=== PATIENT | male | born 1975 | race Caucasian/White ===

== ENCOUNTER → 2017-08-07 17:09 | Outpatient (CLI) | payer MEDICARE, MEDICAID, SELFPAY ==
--- NOTE | 2017-08-07 17:28 | RAD_ITS ---
STUDY: X-RAY - RIGHT ANKLE REASON FOR EXAM: Male, 42 years old. Agitate, redness and swelling, possible occult fracture, patient non-verbal, two views obtained, patient unable to cooperate very well TECHNIQUE: 2 view(s) of the ankle. COMPARISON: None. FINDINGS: Normal visualized distal tibia and fibula. Normal medial and lateral malleoli. Normal tibiotalar articulation and ankle mortise. Normal visualized talus and calcaneus. The visualized subtalar, talonavicular, calcaneocuboid and tarsal articulations are normal. There is soft tissue swelling of the ankle and distal leg RAD/Ankle 2 Views IMPRESSION: Soft tissue swelling of the ankle and distal leg Electronically Signed: Babatunde Aviles MD, FACR at 8:41 EST , Service support ,
--- NOTE | 2017-08-07 17:28 | RAD_ITS ---
STUDY: X-RAY - LEFT FOOT CLINICAL: Male, 42 years old. Agitate, redness and swelling, possible occult fracture, patient non-verbal, two views obtained, patient unable to cooperate very well TECHNIQUE: 2 view(s) of the foot. COMPARISON: None. FINDINGS: Normal talus, calcaneus, and tarsal bones. Normal visualized subtalar, talonavicular, calcaneocuboid, tarsal and tarsometatarsal articulations. Normal metatarsi. Normal metatarsophalangeal joint of the great toe. There is soft tissue swelling adjacent to the head of the first metatarsal with small calcific deposits Normal tibial and fibular sesamoid bones. Normal interphalangeal joint of the great toe. Normal phalanges of the great toe. Normal second through fifth metatarsophalangeal joints. Normal interphalangeal joints and phalanges of the lesser toes. There is soft tissue swelling of the ankle and dorsum of the foot RAD/Foot 2 Views IMPRESSION: Focal soft tissue swelling adjacent to the head of the first metatarsal with a small soft tissue deposits. Rule out gout. Soft tissue swelling of the ankle and dorsum of the foot. Electronically Signed: Babatunde Aviles MD, FACR at 8:29 EST , Service support ,
--- NOTE | 2017-08-07 17:28 | RAD_ITS ---
STUDY: X-RAY - LEFT ANKLE REASON FOR EXAM: Male, 42 years old. Agitate, redness and swelling, possible occult fracture, patient non-verbal, two views obtained, patient unable to cooperate or hold still TECHNIQUE: 2 view(s) of the ankle. COMPARISON: None. FINDINGS: Normal visualized distal tibia and fibula. Normal medial and lateral malleoli. Normal tibiotalar articulation and ankle mortise. Normal visualized talus and calcaneus. The visualized subtalar, talonavicular, calcaneocuboid and tarsal articulations are normal. There is soft tissue swelling of the distal leg and ankle RAD/Ankle 2 Views IMPRESSION: Soft tissue swelling of the distal leg and ankle. No bony lesions noted Electronically Signed: Babatunde Aviles MD, FACR at 8:27 EST , Service support ,
--- NOTE | 2017-08-07 17:28 | RAD_ITS ---
STUDY: X-RAY - RIGHT FOOT CLINICAL: Male, 42 years old. Right foot pain TECHNIQUE: 2 view(s) of the foot. COMPARISON: None. FINDINGS: Normal talus, calcaneus, and tarsal bones. Pes planus deformity. Mild nonuniform joint space narrowing of the tibiotalar joint. The midfoot articulations are unremarkable. Exostosis of the mid diaphysis of the first metatarsal. No acute of metatarsal fracture. Mild to moderate nonuniform joint space narrowing with spur formation involving the first metatarsophalangeal joint with mild metatarsus varus hallux valgus deformity. Small ossific density off of the medial base of the proximal phalanx of the great toe which may represent a chronic avulsion fracture. Normal tibial and fibular sesamoid bones. Mild degenerative change of the interphalangeal joint of the great toe. Normal phalanges of the great toe. Normal second through fifth metatarsophalangeal joints. Normal interphalangeal joints and phalanges of the lesser toes. Mild dorsal soft tissue swelling of the forefoot. RAD/Foot 2 Views IMPRESSION: 1. No evidence of acute fracture or dislocation to the right foot. 2. 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 Electronically Signed: Neil Vidales MD at 3:49 EST Tel , Service support ,
[2017-08-07 17:56] LABS: Absolute Lymphocyte Count 2.01 X10^3/ul (0.83-4.51); Absolute Neutrophil Count 5.8 X10^3/uL (2.0-7.7); Basophil# 0.04 X10^3/uL; Basophil% 0.4 % (0-1); Eosinophil# 0.07 X10^3/uL; Eosinophils% 0.8 % (0-5); Hematocrit 43.3 % (40-54); Hemoglobin 14.8 g/dl (13.0-16.5); Lymphocyte # 2.01 X10^3/ul (4.0); Lymphocyte % 22.4 % (19-41); Mean Corp Hgb Conc 34.2 g/gl (32-36); Mean Corpuscular Hgb 30.7 pg (27.0-32.0); Mean Corpuscular Volume 89.8 fL (80-94); Mean Platelet Vol. 11.5 fl (6.2-12.0); Monocyte# 1.06 X10^3/uL; Monocyte% 11.8 % (0-10); Neutrophil # 5.75 X10^3/uL (2.7-7.7); POSITIVE COUNT NO; POSITIVE DIFFERENTIAL NO; POSITIVE MORPHOLOGY NO; Platelet Count 190 K/mm3 (150-450); RBC Distribution Width SD 45.5 fl (35.1-43.9); Red Blood Count 4.82 M/mm3 (4.6-6.2)
[2017-08-07 18:10] LABS: Erythrocyte Sedimentation Rate 4 mm/hr (0-15)
[2017-08-07 19:08] LABS: BNP,B-Type NATRIURETIC PEPTIDE 11.7 pg/mL (0-100)
[2017-08-07 19:10] LABS: ALB/GLOB Ratio 1.1 RATIO (0.9-2.4); AST(SGOT) 25 U/L (15-37); Alanine Aminotransfer ALT/SGPT 42 U/L (16-61); Albumin, Serum 4.1 g/dL (3.2-5.0); Alkaline Phosphatase 99 U/L (45-117); Anion Gap 9 (5-15); BUN 15 mg/dL (7-18); BUN/Creat Ratio 21.3 RATIO (10-20); Calcium,Total 8.3 mg/dL (8.5-10.1); Chloride 110 mmol/L (98-107); EST Glomerular Filtration Rate 130 mL/min (>60); Est Glom Filt Rate - Afr Amer 157 mL/min (>60); Globulin 3.6 g/dL (2.2-4.2); Glucose 77 mg/dL (74-106); Protein, Total 7.7 g/dL (6.4-8.2); Sodium Level 144 mmol/L (136-145); T4 Free Direct 0.77 ng/dL (0.76-1.46); Thyroid Stim Hormone (TSH) 1.49 uIU/mL (0.358-3.74); Uric Acid 4.1 mg/dL (3.5-7.2)
== END ==
PROVIDERS: Family Provider Family Medicine; PCP Family Medicine; Visit Provider Family Medicine
DX: G40.909 Epilepsy, unspecified, not intractable, without status epilepticus (principal); E72.20 Disorder of urea cycle metabolism, unspecified; R60.9 Edema, unspecified; E03.9 Hypothyroidism, unspecified; L53.9 Erythematous condition, unspecified; R45.1 Restlessness and agitation
CPT/HCPCS: 73600; 73620; 80053; 83880; 84439; 84443; 84550; 85025; 85652

== ENCOUNTER → 2017-08-10 09:43 | Outpatient (CLI) | payer MEDICARE, MEDICAID, SELFPAY ==
--- NOTE | 2017-08-10 09:45 | VDLE_ITS ---
Reason For Study: edema RIGHT LEFT GSV is normal. GSV is normal. CFV is compressible, spontaneous, phasic, CFV is compressible, spontaneous, phasic, competent and demonstrates normal competent, and demonstrates normal augmentation. augmentation. FV is compressible, spontaneous, phasic, FV is compressible, spontaneous, phasic, competent and demonstrates normal competent and demonstrates normal augmentation. augmentation. POP V is compressible, spontaneous, phasic, POP V is compressible, spontaneous, phasic, competent and demonstrates normal competent and demonstrates normal augmentation. augmentation. T/P Trunk is compressible. T/P Trunk is compressible. PTV is compressible. PTV is compressible. RT PerV is compressible. LT PerV is compressible. Procedure Exam performed in department. The exam was of fair technical quality due to pt positioning. A preliminary report was called and/or faxed to Dr. Tuttle. Interpretation Summary Deep veins of the lower extremities are bilaterally patent and compressible segmentally. There is no evidence of deep vein thrombosis on either side. Valvular competence appears intact within the proximal deep venous systems bilaterally. The greater saphenous veins appear bilaterally patent and compressible segmentally. Ordering Physician: Toni Tuttle Performed By: Henry Garcia, RVT
--- NOTE | 2017-08-10 10:20 | RAD_ITS ---
STUDY: X-RAY - LEFT FOOT CLINICAL: Male, 42 years old. Pain and erythema following injury. TECHNIQUE: 3 view(s) of the foot. COMPARISON: None. FINDINGS: Normal talus, calcaneus, and tarsal bones. Normal visualized subtalar, talonavicular, calcaneocuboid, tarsal and tarsometatarsal articulations. Normal metatarsi. There is degenerative arthrosis of the metatarsophalangeal joint of the hallux with a hallux valgus deformity. Normal tibial and fibular sesamoid bones. Normal interphalangeal joint of the great toe. Normal phalanges of the great toe. Normal second through fifth metatarsophalangeal joints. Normal interphalangeal joints and phalanges of the lesser toes. Diffuse soft tissue swelling along the dorsal aspect of the foot. RAD/Foot min 3 Views IMPRESSION: Soft tissue swelling. Electronically Signed: Giovany Kasper MD at 14:39 EST Tel [phone], Service support ,
--- NOTE | 2017-08-10 10:21 | RAD_ITS ---
STUDY: X-RAY - LEFT ANKLE REASON FOR EXAM: Male, 42 years old. Pain TECHNIQUE: 3 view(s) of the ankle. COMPARISON: None. FINDINGS: Normal visualized distal tibia and fibula. Normal medial and lateral malleoli. Normal tibiotalar articulation and ankle mortise. Normal visualized talus and calcaneus. The visualized subtalar, talonavicular, calcaneocuboid and tarsal articulations are normal. Diffuse soft tissue swelling. RAD/Ankle min 3 Views IMPRESSION: Diffuse swelling of the ankle. Electronically Signed: Jordin Dela Cruz DO at 18:48 EST Tel [phone], Service support ,
== END ==
PROVIDERS: Family Provider Family Medicine; PCP Family Medicine; Visit Provider Family Medicine
DX: R60.0 Localized edema (principal)
CPT/HCPCS: 73610; 73630; 93970

== ENCOUNTER → 2017-08-14 15:35 | Outpatient (CLI) | payer MEDICARE, MEDICAID, SELFPAY | PROVIDERS: Family Provider Family Medicine; PCP Family Medicine; Visit Provider Allergy & Immunology | DX: D83.9 Common variable immunodeficiency, unspecified (principal) | CPT/HCPCS: 99211; A4216; G0463 ==

== ENCOUNTER 2017-08-14 22:47 | Emergency (ER) | payer MEDICARE, MEDICAID, SELFPAY ==
[2017-08-14 22:48] VITALS: BP 140/48; PULSE 71; RESP 16; TEMP 36.1; O2SAT 96; BMI 29.5
--- NOTE | 2017-08-14 23:46 | ED.DCSUM_ITS ---
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 He has missed none of his medication doses, he is on Vimpat, Keppra, Topamax, and Dilantin for his seizure disorder. No recent adjustments. No recent fevers or illness except for a swollen left foot and leg for the past 2 months plus, for which he has had many tests for including ultrasound ruling out DVTs, x-rays that have been unremarkable, and a uric acid level that was normal. It is questionable whether he feels any pain in this area or not, but they have considered the possibility of gout and had him on indomethacin for the last 4 or 5 days. Family states it does not seem to be bothering him, and he is a little swollen on the right but not nearly as much as the left. Did an antibiotic early in the course 2 months ago or so, with did not seem to make a difference. Has had 2 different ultrasounds which have been negative for venous thrombotic disease both times. At baseline mental status now. Has had head CTs that have been unremarkable in the past for this problem, these are similar seizures that he has had. Physical Examination: Laughing, smiling, not uncooperative. Moving all 4 extremities equally. Swollen left foot dorsally, nonfocal, with pedal edema that progresses all the way up to about the knee. Mild blanching erythema left foot, mildly more prominent than the right. No erythema up the leg. There is some scarring calluses on his toes and feet. He has hallux valgus bilaterally. Abdomen is benign. Lungs are clear, heart is regular without tachycardia. Neck is supple. Test Results: No leukocytosis. Prerenal azotemia. Dilantin level is 12.5; he has already had both of his doses today, the most recent was tonight. Emergency Department Course and Treatment: No further seizure activity. Patient remained stable. Discussed with neurology inspector outside production Dr. Yee, who recommends giving him an extra dose of Dilantin 100 mg, and treating any possible infections, which we planned on doing with Keflex, initial dose given. Unknown if the leg redness/swelling is being caused by an infection or not, I have no problem starting him on an empiric antibiotic and having him follow-up closely which family is comfortable with. They will follow-up with Dr. Vernon regarding further dosing of Dilantin and his other antiepileptics. Treatment Plan: As above including Keflex 500 mg 4 times daily ?10 days Disposition: Discharge home Impression: Breakthrough seizures History seizure disorder R foot swelling This note was generated with [employer] dictation software. It may contain incorrect words, spelling, and punctuation that were not noted in review of the chart prior to signing ED Disposition - Plan for ED Patient: Disposition: Home or Assisted Living Chief Complaint: Seizure Instructions: ED Seizure Recurrent Prescriptions: Cephalexin [Keflex] 500 mg PO Q6 #40 cap Referrals: Toni Tuttle MD [Primary Care Provider] - Domo Vernon [Other] (this week)
[2017-08-15 00:15] LABS: Absolute Lymphocyte Count 2.41 X10^3/ul (0.83-4.51); Absolute Neutrophil Count 4.7 X10^3/uL (2.0-7.7); Basophil# 0.05 X10^3/uL; Basophil% 0.6 % (0-1); Eosinophil# 0.08 X10^3/uL; Hematocrit 40.6 % (40-54); Hemoglobin 13.9 g/dl (13.0-16.5); Lymphocyte # 2.41 X10^3/ul (4.0); Lymphocyte % 28.7 % (19-41); Mean Corp Hgb Conc 34.2 g/gl (32-36); Mean Corpuscular Volume 90.4 fL (80-94); Mean Platelet Vol. 11.6 fl (6.2-12.0); Monocyte# 1.19 X10^3/uL; Monocyte% 14.1 % (0-10); Neutrophil # 4.65 X10^3/uL (2.7-7.7); Neutrophil % 55.2 % (47-70); Platelet Count 157 K/mm3 (150-450); RBC Distribution Width CV 13.8 % (11.6-14.6); Red Blood Count 4.49 M/mm3 (4.6-6.2); White Blood Count 8.4 K/mm3 (4.4-11.0)
[2017-08-15 00:16] LABS: POSITIVE COUNT NO; POSITIVE DIFFERENTIAL NO; POSITIVE MORPHOLOGY NO
[2017-08-15 00:44] LABS: Anion Gap 8 (5-15); BUN 24 mg/dL (7-18); BUN/Creat Ratio 32.7 RATIO (10-20); Calcium,Total 8.4 mg/dL (8.5-10.1); Chloride 113 mmol/L (98-107); Creatinine, Serum 0.73 mg/dL (0.70-1.30); EST Glomerular Filtration Rate 124 mL/min (>60); Est Glom Filt Rate - Afr Amer 150 mL/min (>60); Estimated Creatinine Clearance 126.23 ml/min; Glucose 102 mg/dL (74-106); Potassium 3.8 mmol/L (3.5-5.1); Sodium Level 142 mmol/L (136-145)
[2017-08-15 00:46] LABS: Phenytoin (Dilantin) Level 12.9 mL (10.0-20.0)
[2017-08-15] MEDS: Cephalexin 250 MG Capsule 500 MG PO (01:43)
[2017-08-15] MEDS: Phenytoin Na 100 MG Capsule PO (01:43)
--- NOTE | 2017-08-15 01:51 | NURSING ---
no seizure activity noted at the time.
[2017-08-15 01:52] VITALS: BP 139/87; PULSE 93; RESP 18; O2SAT 96
== END 2017-08-15 01:57 | disposition home or self-care (01) ==
PROVIDERS: Emergency Provider Emergency Medicine; Family Provider Family Medicine; PCP Family Medicine
DX: G40.909 Epilepsy, unspecified, not intractable, without status epilepticus (principal); M79.89 Other specified soft tissue disorders; E06.3 Autoimmune thyroiditis; D83.9 Common variable immunodeficiency, unspecified; R79.89 Other specified abnormal findings of blood chemistry; F79 Unspecified intellectual disabilities; Z79.82 Long term (current) use of aspirin; Z79.899 Other long term (current) drug therapy
CPT/HCPCS: 80048; 80185; 85025; 99211; 99282; A4216; G0463

== ENCOUNTER → 2017-08-29 12:51 | Outpatient (CLI) | payer MEDICARE, MEDICAID, SELFPAY ==
--- NOTE | 2017-08-29 12:53 | ECHOD_ITS ---
Reason For Study: PERIPHERAL EDEMA Procedure This was a 2D Doppler, Color Flow transthoracic echocardiogram. Exam performed in department. Left Ventricle Normal LV size. Left ventricular systolic function is normal. The estimated ejection fraction is 55 %. No evidence for diastolic dysfunction. No regional wall motion abnormalities noted. Right Ventricle Normal RV size. Normal systolic function. Atria Normal left atrium. Normal right atrium. Mitral Valve Normal mitral valve. Tricuspid Valve Normal tricuspid valve. Aortic Valve The aortic valve is not well visualized. Pulmonic Valve Normal pulmonic valve. Great Vessels Normal aortic root. The pulmonary artery is normal size. Normal inferior vena cava. MMode/2D Measurements & Calculations LVIDd: 4.8 cm IVSd: 0.81 cm LA dimension: 3.2 cm LVIDs: 3.0 cm LVPWd: 0.96 cm RVDd: 3.6 cm FS: 37.9 % LAV(MOD-sp2): 52.0 ml EDV(MOD-sp4): 97.5 ml EDV(MOD-sp2): 90.3 ml ESV(MOD-sp4): 34.8 ml EF(MOD-sp2): 58.5 % EF(MOD-sp4): 64.3 % SV(MOD-sp4): 62.7 ml SV(MOD-sp2): 52.8 ml LA A4 area: 16.5 cm2 RA A4 area: 17.8 cm2 Doppler Measurements & Calculations MV E max willem: 113.6 cm/sec LV V1 max: 126.9 cm/sec TR max willem: 178.9 cm/sec MV A max willem: 63.2 cm/sec LV V1 max P.4 mmHg TR max P.8 mmHg MV E/A: 1.8 Interpretation Summary Normal LV size. Left ventricular systolic function is normal. The estimated ejection fraction is 55 %. No evidence for diastolic dysfunction. Structurally normal valves. Ordering Physician: Toni Tuttle Referring Physician: Toni Tuttle Performed By: Parvin Alfonso, MARCO, RVT
== END ==
PROVIDERS: Family Provider Family Medicine; PCP Family Medicine; Visit Provider Family Medicine
DX: R60.0 Localized edema (principal); L53.9 Erythematous condition, unspecified
CPT/HCPCS: 93306

== ENCOUNTER → 2017-11-06 15:39 | Outpatient (CLI) | payer MEDICARE, MEDICAID, SELFPAY | PROVIDERS: Family Provider Family Medicine; PCP Family Medicine; Visit Provider Allergy & Immunology | DX: D83.9 Common variable immunodeficiency, unspecified (principal) | CPT/HCPCS: 99211; A4216; G0463 ==

== ENCOUNTER → 2017-11-16 11:02 | Outpatient (CLI) | payer MEDICARE, MEDICAID, SELFPAY ==
[2017-11-16 12:42] LABS: Free T3 2.1 pg/mL (2.18-3.98); T4 Free Direct 0.71 ng/dL (0.76-1.46); Thyroid Stim Hormone (TSH) 1.01 uIU/mL (0.358-3.74)
== END ==
PROVIDERS: Family Provider Family Medicine; PCP Family Medicine; Visit Provider Nurse Practitioner
DX: E03.9 Hypothyroidism, unspecified (principal)
CPT/HCPCS: 36415; 84439; 84443; 84481

== ENCOUNTER → 2017-12-20 15:39 | Outpatient (CLI) | payer MEDICARE, MEDICAID, SELFPAY | PROVIDERS: Family Provider Family Medicine; PCP Family Medicine; Visit Provider Allergy & Immunology | DX: D83.9 Common variable immunodeficiency, unspecified (principal) | CPT/HCPCS: 99211; A4216; G0463 ==

== ENCOUNTER → 2018-01-31 15:15 | Outpatient (CLI) | payer MEDICARE, MEDICAID, SELFPAY | PROVIDERS: Family Provider Family Medicine; PCP Family Medicine; Visit Provider Allergy & Immunology | DX: D83.9 Common variable immunodeficiency, unspecified (principal) | CPT/HCPCS: 99211; A4216; G0463 ==

== ENCOUNTER → 2018-03-14 15:27 | Outpatient (CLI) | payer MEDICARE, MEDICAID, SELFPAY | PROVIDERS: Family Provider Family Medicine; PCP Family Medicine; Visit Provider Allergy & Immunology | DX: D83.9 Common variable immunodeficiency, unspecified (principal) | CPT/HCPCS: 99211; A4216; G0463 ==

== ENCOUNTER → 2018-04-25 15:22 | Outpatient (CLI) | payer MEDICARE, MEDICAID, SELFPAY | PROVIDERS: Family Provider Family Medicine; PCP Family Medicine; Referring Provider Allergy & Immunology; Visit Provider Allergy & Immunology | DX: D83.9 Common variable immunodeficiency, unspecified (principal) | CPT/HCPCS: 99211; A4216; G0463 ==

== ENCOUNTER → 2018-06-08 14:07 | Outpatient (CLI) | payer MEDICARE, MEDICAID, SELFPAY ==
[2018-06-08 14:50] LABS: Absolute Lymphocyte Count 1.19 X10^3/ul (0.83-4.51); Absolute Neutrophil Count 11.2 X10^3/uL (2.0-7.7); Basophil# 0.02 X10^3/uL; Basophil% 0.1 % (0-1); Eosinophil# 0.01 X10^3/uL; Eosinophils% 0.1 % (0-5); Hematocrit 44.9 % (40-54); Hemoglobin 15.3 g/dl (13.0-16.5); Lymphocyte # 1.19 X10^3/ul (4.0); Lymphocyte % 8.3 % (19-41); Mean Corp Hgb Conc 34.1 g/gl (32-36); Mean Corpuscular Hgb 30.8 pg (27.0-32.0); Mean Corpuscular Volume 90.3 fL (80-94); Mean Platelet Vol. 11.2 fl (6.2-12.0); Monocyte# 1.79 X10^3/uL; Monocyte% 12.5 % (0-10); Neutrophil # 11.19 X10^3/uL (2.7-7.7); Neutrophil % 78.2 % (47-70); Platelet Count 207 K/mm3 (150-450); RBC Distribution Width CV 13.2 % (11.6-14.6); RBC Distribution Width SD 42.9 fl (35.1-43.9); Red Blood Count 4.97 M/mm3 (4.6-6.2); White Blood Count 14.3 K/mm3 (4.4-11.0)
[2018-06-08 14:51] LABS: Differential Indicated SCAN CRITERIA MET; POSITIVE COUNT NO; POSITIVE DIFFERENTIAL YES; POSITIVE MORPHOLOGY NO
[2018-06-08 15:00] LABS: AST(SGOT) 18 U/L (15-37); Alanine Aminotransfer ALT/SGPT 27 U/L (16-61); Albumin, Serum 3.9 g/dL (3.2-5.0); Alkaline Phosphatase 97 U/L (45-117); Anion Gap 9 (5-15); BUN 14 mg/dL (7-18); Bilirubin, Direct 0.11 mg/dL (0.00-0.30); Chloride 109 mmol/L (98-107); Creatinine, Serum 0.75 mg/dL (0.70-1.30); EST Glomerular Filtration Rate 120 mL/min (>60); Est Glom Filt Rate - Afr Amer 145 mL/min (>60); Globulin 3.6 g/dL (2.2-4.2); Potassium 3.6 mmol/L (3.5-5.1); Protein, Total 7.5 g/dL (6.4-8.2); Sodium Level 141 mmol/L (136-145)
[2018-06-08 15:43] LABS: Platelet Estimate ADEQUATE (ADEQ)
[2018-06-08 15:44] LABS: Red Cell Morphology NORM C+C NORMAL (NORM C&C)
[2018-06-10 09:56] LABS: Immunoglobulin G 700 mg/dL (700-1600)
[2018-06-12 10:48] LABS: Pathologist Review Reviewed
== END ==
PROVIDERS: Family Provider Family Medicine; PCP Family Medicine; Referring Provider Allergy & Immunology; Visit Provider Allergy & Immunology
DX: D83.9 Common variable immunodeficiency, unspecified (principal)
CPT/HCPCS: 80051; 80076; 82565; 82784; 84520; 85025; 99211; A4216; G0463

== ENCOUNTER 2018-06-08 17:57 | Emergency (ER) | payer MEDICARE, MEDICAID, SELFPAY ==
[2018-06-08 17:59] VITALS: BP 134/80; PULSE 93; RESP 16; TEMP 36.6; BMI 29.1
--- NOTE | 2018-06-08 18:35 | RAD_ITS ---
STUDY: X-RAY CHEST REASON FOR EXAM: Male, 43 years old. Fever status post dental procedure. TECHNIQUE: Portable chest. COMPARISON: 03/29/2016. FINDINGS: The lungs are clear and expanded. There is no demonstrated pleural abnormality. Normal size heart. Normal mediastinum and mariaelena. Normal visualized pulmonary arteries. Normal visualized aortic arch and descending thoracic aorta. Normal visualized thoracic spine. Normal visualized ribs, clavicles, and shoulders. There is no demonstrated abnormality of the visualized soft tissue structures of the upper abdomen. RAD/Chest 1 View (Portable) IMPRESSION: Normal x-ray examination of the chest. Electronically Signed: Radha Hoang MD at 19:00 EST Tel , Service support ,
[2018-06-08 19:24] LABS: Absolute Lymphocyte Count 1.09 X10^3/ul (0.83-4.51); Absolute Neutrophil Count 8.7 X10^3/uL (2.0-7.7); Basophil# 0.03 X10^3/uL; Basophil% 0.3 % (0-1); Eosinophil# 0.02 X10^3/uL; Eosinophils% 0.2 % (0-5); Hematocrit 42.6 % (40-54); Hemoglobin 14.6 g/dl (13.0-16.5); Lymphocyte # 1.09 X10^3/ul (4.0); Lymphocyte % 9.7 % (19-41); Mean Corp Hgb Conc 34.3 g/gl (32-36); Mean Corpuscular Volume 90.4 fL (80-94); Mean Platelet Vol. 11.1 fl (6.2-12.0); Monocyte# 1.33 X10^3/uL; Monocyte% 11.8 % (0-10); Neutrophil # 8.74 X10^3/uL (2.7-7.7); Neutrophil % 77.3 % (47-70); Platelet Count 200 K/mm3 (150-450); Red Blood Count 4.71 M/mm3 (4.6-6.2); White Blood Count 11.3 K/mm3 (4.4-11.0)
[2018-06-08 19:25] LABS: POSITIVE COUNT NO; POSITIVE DIFFERENTIAL NO; POSITIVE MORPHOLOGY NO
[2018-06-08 19:37] LABS: ALB/GLOB Ratio 0.8 RATIO (0.9-2.4); AST(SGOT) 16 U/L (15-37); Alanine Aminotransfer ALT/SGPT 25 U/L (16-61); Albumin, Serum 3.5 g/dL (3.2-5.0); Alkaline Phosphatase 87 U/L (45-117); Anion Gap 8 (5-15); BUN 15 mg/dL (7-18); BUN/Creat Ratio 19.9 RATIO (10-20); Calcium,Total 8.3 mg/dL (8.5-10.1); Chloride 108 mmol/L (98-107); Creatinine, Serum 0.75 mg/dL (0.70-1.30); EST Glomerular Filtration Rate 120 mL/min (>60); Est Glom Filt Rate - Afr Amer 145 mL/min (>60); Estimated Creatinine Clearance 117.51 ml/min; Globulin 4.5 g/dL (2.2-4.2); Glucose 105 mg/dL (74-106); Potassium 3.4 mmol/L (3.5-5.1); Sodium Level 141 mmol/L (136-145)
[2018-06-08 19:54] LABS: Prothrombin Time (Protime)PT. 13.4 SECONDS (11.7-14.9)
[2018-06-08 19:55] LABS: Partial Thromboplast Time 24.4 Seconds (24.1-36.2)
[2018-06-08 20:13] LABS: Thyroid Stim Hormone (TSH) 1.11 uIU/mL (0.358-3.74)
[2018-06-08 20:18] LABS: Lactic Acid 1.3 mmol/L (0.4-2.0)
[2018-06-08 20:47] LABS: Bacteria 0 SEEN /hpf (None Seen); Mucous, Urine 0 SEEN /hpf (<or=2+); Red Blood Cells-Urine 0 SEEN /hpf (0-5); Squamous Epithelial Cells - UA 0 SEEN /hpf (0-5); White Blood Cells 0 SEEN /hpf (0-5)
[2018-06-08 20:50] LABS: Color, Urine Yellow (Yellow); Glucose, Dipstick Normal (Normal); Ketone-Dipstick Negative (Negative); Leukocyte Esterase-Dipstick Negative /ul (Negative); Nitrite-Dipstick Negative (Negative); Occult Blood-Urine Negative /ul (Negative); Protein-Dipstick Negative (Negative); Urine Bilirubin Dipstick Negative (Negative); Urine Clarity Clear (Clear); Urine Urobilinogen Normal (Normal); Urine pH 6.5 (5.0 - 8.0)
--- NOTE | 2018-06-08 21:31 | ED.VISSUMM ---
- ER Visit Summary Date of Service: 06/08/18 Chief Complaint: Concern for sepsis History of Present Illness: The patient is a 43 M presenting with caregivers and mother secondary to concern for sepsis. Patient has an underlying history of severe seizure disorder, MRDD, stroke, thyroid disease. Patient apparently had a recent prolonged admission at [facility] secondary to some generalized weakness. It was thought that potentially this was secondary to a seizure disorder. He had a EEG performed which was ultimately found to be negative. Patient's epileptic tawer thought that potentially he may have had a small stroke, but they were unable to get CT on the patient secondary to his baseline developmental delay and the fact that they would have had to place him under anesthesia to get CT of the brain to check for any stroke type symptoms. Patient is having continued weakness, and is having difficulty with ambulating. He has had some episodes of nausea and vomiting but no fevers. He had recent dental work in the sense that he had to be placed under anesthesia for dental cleaning, but did not actually have any sort of dental surgery. Patient's epileptic neurologist apparently was concerned about the possibility of sepsis, and recommended the family to come to the emergency department for evaluation. Patient has not had any sort of fevers or any continued nausea or vomiting or diarrhea. No skin rashes. Physical Examination: Vital signs within normal limits. Well-nourished male no acute distress. Head normocephalic. TMs clear bilaterally moist mucous membranes normal posterior pharynx. Neck was supple. Heart regular rate and rhythm. Lungs sound clear to auscultation bilaterally no rhonchi rales or wheezes. Abdomen soft nontender. Back nontender. Skin normal color no rash. Patient was alert. No lateralizing neurological deficits noted. Test Results: CBC shows leukocytosis of 11, chemistry lactic acid urinalysis and chest x-ray all found to be within normal limits Emergency Department Course and Treatment: Patient presented with some generalized weakness. He has no physical exam findings or vital sign findings that are concerning for sepsis, but at the patient's mother's request the sepsis workup was obtained which ultimately was found to be negative. Patient is otherwise well-appearing, I see no reason for the patient to be admitted to the hospital at this time. Patient's blood cultures obviously are still pending, and mother was informed that she will be contacted should these come back positive. She was recommended to follow-up with her primary care physician. Disposition: Discharge Impression: 1. Generalized weakness This note was generated with [employer] dictation software. It may contain incorrect words, spelling, and punctuation that were not noted in review of the chart prior to signing ED Disposition - Plan for ED Patient: Disposition: Home or Assisted Living Chief Complaint: General Illness Diagnosis: Generalized weakness Instructions: ED Weakness [facility] Referrals: Toni Tuttle MD [Primary Care Provider] - 3-5 Days
--- NOTE | 2018-06-08 21:34 | ED.DCSUM_ITS ---
- ER Visit Summary Date of Service: 06/08/18 Chief Complaint: Concern for sepsis History of Present Illness: The patient is a 43 M presenting with caregivers and mother secondary to concern for sepsis. Patient has an underlying history of severe seizure disorder, MRDD, stroke, thyroid disease. Patient apparently had a recent prolonged admission at [facility] secondary to some generalized weakness. It was thought that potentially this was secondary to a seizure disorder. He had a EEG performed which was ultimately found to be negative. Patient's epileptic moisture machine tender thought that potentially he may have had a small stroke, but they were unable to get CT on the patient secondary to his baseline developmental delay and the fact that they would have had to place him under anesthesia to get CT of the brain to check for any stroke type symptoms. Patient is having continued weakness, and is having difficulty with ambulating. He has had some episodes of nausea and vomiting but no fevers. He had recent dental work in the sense that he had to be placed under anesthesia for dental cleaning, but did not actually have any sort of dental surgery. Patient's epileptic neurologist apparently was concerned about the possibility of sepsis, and recommended the family to come to the emergency department for evaluation. Patient has not had any sort of fevers or any continued nausea or vomiting or diarrhea. No skin rashes. Physical Examination: Vital signs within normal limits. Well-nourished male no acute distress. Head normocephalic. TMs clear bilaterally moist mucous membranes normal posterior pharynx. Neck was supple. Heart regular rate and rhythm. Lungs sound clear to auscultation bilaterally no rhonchi rales or wheezes. Abdomen soft nontender. Back nontender. Skin normal color no rash. Patient was alert. No lateralizing neurological deficits noted. Test Results: CBC shows leukocytosis of 11, chemistry lactic acid urinalysis and chest x-ray all found to be within normal limits Emergency Department Course and Treatment: Patient presented with some generalized weakness. He has no physical exam findings or vital sign findings that are concerning for sepsis, but at the patient's mother's request the sepsis workup was obtained which ultimately was found to be negative. Patient is otherwise well-appearing, I see no reason for the patient to be admitted to the hospital at this time. Patient's blood cultures obviously are still pending, and mother was informed that she will be contacted should these come back positive. She was recommended to follow-up with her primary care physician. Disposition: Discharge Impression: 1. Generalized weakness This note was generated with [employer] dictation software. It may contain incorrect words, spelling, and punctuation that were not noted in review of the chart prior to signing ED Disposition - Plan for ED Patient: Disposition: Home or Assisted Living Chief Complaint: General Illness Diagnosis: Generalized weakness Instructions: ED Weakness [facility] Referrals: Toni Tuttle MD [Primary Care Provider] - 3-5 Days
[2018-06-08 21:51] VITALS: BP 130/78; PULSE 87; RESP 16; O2SAT 98
== END 2018-06-08 21:54 | disposition home or self-care (01) ==
PROVIDERS: Emergency Provider Emergency Medicine; Family Provider Family Medicine; PCP Family Medicine
DX: R53.1 Weakness (principal); D83.9 Common variable immunodeficiency, unspecified; G80.9 Cerebral palsy, unspecified; G40.909 Epilepsy, unspecified, not intractable, without status epilepticus; R26.2 Difficulty in walking, not elsewhere classified; F79 Unspecified intellectual disabilities; R11.2 Nausea with vomiting, unspecified; E07.9 Disorder of thyroid, unspecified; R05 Cough; Z79.82 Long term (current) use of aspirin; Z79.899 Other long term (current) drug therapy; Z86.73 Personal history of transient ischemic attack (TIA), and cerebral infarction without residual deficits
CPT/HCPCS: 71045; 80051; 80053; 80076; 81001; 82565; 82784; 83605; 84443; 84520; 85025; 85610; 85730; 87040; 87086; 97162; 99211; 99283; P9612; A4216; G0463

== ENCOUNTER → 2018-07-11 15:26 | Outpatient (CLI) | payer MEDICARE, MEDICAID, SELFPAY ==
[2018-07-11 16:33] LABS: Absolute Lymphocyte Count 1.71 X10^3/ul (0.83-4.51); Absolute Neutrophil Count 7.1 X10^3/uL (2.0-7.7); Basophil# 0.03 X10^3/uL; Basophil% 0.3 % (0-1); Eosinophil# 0.02 X10^3/uL; Eosinophils% 0.2 % (0-5); Hematocrit 44.4 % (40-54); Hemoglobin 15.2 g/dl (13.0-16.5); Lymphocyte # 1.71 X10^3/ul (4.0); Lymphocyte % 17.7 % (19-41); Mean Corp Hgb Conc 34.2 g/gl (32-36); Mean Corpuscular Volume 90.4 fL (80-94); Mean Platelet Vol. 11.3 fl (6.2-12.0); Monocyte# 0.78 X10^3/uL; Monocyte% 8.1 % (0-10); Neutrophil # 7.05 X10^3/uL (2.7-7.7); Neutrophil % 73.2 % (47-70); Platelet Count 229 K/mm3 (150-450); RBC Distribution Width CV 13.6 % (11.6-14.6); RBC Distribution Width SD 44.6 fl (35.1-43.9); Red Blood Count 4.91 M/mm3 (4.6-6.2); White Blood Count 9.6 K/mm3 (4.4-11.0)
[2018-07-11 16:54] LABS: POSITIVE COUNT NO; POSITIVE DIFFERENTIAL NO; POSITIVE MORPHOLOGY NO
[2018-07-13 12:29] LABS: Immunoglobulin G 784 mg/dL (700-1600)
== END ==
PROVIDERS: Family Provider Family Medicine; PCP Family Medicine; Referring Provider Allergy & Immunology; Visit Provider Allergy & Immunology
DX: D83.9 Common variable immunodeficiency, unspecified (principal)
CPT/HCPCS: 82784; 85025; 99211; A4216; G0463

== ENCOUNTER → 2018-08-13 15:24 | Outpatient (CLI) | payer MEDICARE, MEDICAID, SELFPAY | PROVIDERS: Family Provider Family Medicine; PCP Family Medicine; Referring Provider Allergy & Immunology; Visit Provider Allergy & Immunology | DX: D83.9 Common variable immunodeficiency, unspecified (principal) | CPT/HCPCS: 99211; G0463 ==

== ENCOUNTER → 2018-09-19 15:37 | Outpatient (CLI) | payer MEDICARE, MEDICAID, SELFPAY | PROVIDERS: Family Provider Family Medicine; PCP Family Medicine; Visit Provider Allergy & Immunology | DX: D83.9 Common variable immunodeficiency, unspecified (principal) | CPT/HCPCS: 96523; A4216 ==

== ENCOUNTER 2018-09-27 11:00 | Outpatient (RCR) | payer MEDICARE, MEDICAID, SELFPAY ==
--- NOTE | 2018-06-08 13:59 | HP.PTEVAL_ITS ---
Patient's Visit Information JAVON ESPINOZA is a 43 year old M referred to Physical Therapy by Cesar Laureano with a diagnosis of Unsteady gait. Date of Evaluation: 06/08/18 Physical Therapist: Michael Dickey DPT, [place] - Visit Plan Frequency: 1x/Week Duration: 4-6 Weeks Plan: Caretakers to work on standing balance. Weekly in therapy to work on: 1. standing balacne as much as patient will allow with his attention span and lack of communicatory ability. 2. Gait training with goal of ambulating safely with CGA as prior to last week. 3. Steps when appropriate for leg strenght. Mom thinks problems may be from seraquil and it won't be out of his system until this weekend. If he gets back to normal on his own, they may call and cancel. - Subjective Findings: Having hard time walking. One week ago yesterday had some anaesthesia dental work. Was good the next day. The following day vomitted and got unsteady. Very unsteady Monday morning adn to ER. Admitted to epilepsy monitorring unit at [facility] for Catscan. H/O stroke as an infant. H/O swallowing issue which may be a little worse adn was on thickened liquids. This past Monday talked with psychiatirst. Mom says legs are stiff and tries to move legs but doesn't respond quickly on Monday. stopped seraquil since Monday, slightly better with balance but still has moments where he tends BW. Presents today with [facility] people where he lives. Needed armm hold assist prior for clumsiness. Now needs two people assist. Seraquil should be out of system tomorrow. Needs to be released to go back to workshop where he sits and watches movie 3 days per week. Typically walks with supervision, no AD. Needs to get back to one staff assist. No steps. Other areas of dressing and ADLs are normal. [facility] in [facility]. Irritable lately. Hasn't been able to get in walk in shower. Doesn't use AD as he has tried in the past and it gets in the way and is very unsafe according to mom and caregivers. - Objective Fucntional evaluation as patient does not follow directions, is not conversationally verbal and is easily irritated to a scream and reflexive pull back movements when interacting with his legs. Sit to stadn with one supervision. Stand balance is poor today, tends to lean forward and then needs to take a step which is not big enough to keep COG between his feet. Only stands in one spot today for about 3 seconds with Min A of one before taking step. Walks with 2 assist(packaging designer and therapist today) min A due to tendency to lean forward to far. Tends to stop foot movement prior to getting to chair and put hands on chair and flop down into it with Min A of one for safety. LE AROM WFL, R LE seems higher tone than L but likely baseline as stroke effected R side. AROM wFL LE, raises UE 130 degrees OH when demonstrated adn encouraged by careetaker and therapist. Unable/unwilling to follow directions for FGA - Goals Goal 1:: Walk with one person supervision CGA as prior to last weeks incident consistently. Goal Time Frame: 4-6 Weeks Goal 2:: Transfer safe and I with one packaging designer to and fro chair Goal Time Frame: 4-6 Weeks - Rehabilitation Potential Physical Therapy Diagnosis: Unsteadiness due to recent medical issues/changes. Rehabilitation Potential: Questionable - Anticipated Interventions Patient/Client Instruction: Educate patient on: Condition, Plan of Care Therapeutic Exercise to Include: Strength training, Gait and locomotor training For the Purpose of:: To increase tolerance to activity/condition/position, To improve safety with gait Thank you for the opportunity to evaluate your patient. For Medicare and Medicare HMO plans, please review the plan of care and approve it. It will need to be FAXED BACK to us at [phone] for Medicare purposes. For Medicare only, by signing this I certify the plan of care. Please let me know if there are questions or concerns regarding this plan of care. Physician Signature: Date:
--- NOTE | 2018-07-05 10:43 | HP.PTREVAL ---
ISABELL LEIJA, It has been my pleasure to treat JAVON ESPINOZA over the last 4 visits for Unsteady gait. Please see the progress note below for an update on the physical therapy plan of care! Subjective: Mom says had epiosode of not able to move L side adn will ahve an MRI ordered by doctor but not until July 18. These incidence come and go and last a few hours and doctor is aware. Added back seraquil as it was not the culprit. Is marks and antagonistic this morning. doctor wants therapy for balance in case he is having CVa as it will be treated with balance therapy. they have ruled out seizures and infections. Caretakers say walking is up and down. Fell [employer] and hit face, called squad. Objective/Function: Mi on face from fall. Pt will not tolerate a gait belt as it gives him anxiety so two person walking standing is approp(has two caretakers with him each visit). Munoz snot deal well with obstacles in his path/ladder. Will not use walker as it throws him off. Lots of looking down and keeping eyes closed today. Steps were short and tended to lean body weight forward needing assist of 2 Min to keep balance ambulating and Min A to stand at first. Stood 15 seconds looking at a picture of [place] with CGA. But tends to sit when not moving forward and has minimal ability to verbal cue desires. Mom and carteakers describing up and down abilities particularly with L side. Had good PROM B LE today and LAQ with both LE to let me check PROM. Overall minimal improvement and further diagnostics appropriate. Continued PT for monitor condition appropriate. Plan Plan: weekly x 4 to work on gait, standing balance and finding cue for him to sit. Goals Goal 1:: Walk with one person supervision CGA as prior to last weeks incident consistently. Goal Time Frame: 4-6 Weeks Goal Progress: Not Progressing Goal 2:: Transfer safe and I with one shorthand reporter to and fro chair Goal Time Frame: 4-6 Weeks Goal Progress: up and down. Goal 3:: Walk 300 feet with one person CGA safe and consistent Goal Time Frame: 4-6 Weeks Goal Progress: NEW goal Goal 4:: Stand 60 seconds without LOB Goal Time Frame: 4-6 Weeks Goal Progress: NEW GOAL Goal 5:: Pt will cue appropriately when wants to rest or sit. Goal Time Frame: 4-6 Weeks Goal Progress: NEW GOAL Anticipated Interventions Patient/Client Instruction: Educate patient on: Condition, Plan of Care Therapeutic Exercise to Include: Strength training, Gait and locomotor training For the Purpose of:: To increase tolerance to activity/condition/position, To improve safety with gait Please do not hesitate to contact me at [phone] by phone or if you have questions or concerns regarding this new plan of care! Sincerely, Michael Dickey, DPT, OCS, CSCS
--- NOTE | 2018-08-15 11:58 | HP.PTREVAL ---
ISABELL LEIJA, It has been my pleasure to treat JAVON ESPINOZA over the last 7 visits for Unsteady gait. Please see the progress note below for an update on the physical therapy plan of care! Subjective: Admitted to hospital end July and there for a week. Did not show seizures. Took him off one of his seizure meds and decreased other seizure meds. Seems like he was having trouble with these meds. Came home and was week kneed but has gradually gotten stronger. Fashion Buyer says near back to baseline. Not back to workshop yet as he needs consistency with walking with staff in arms reach. Objective/Function: Walking without assist today with just supervision for treatment and recheck over 100 feet. stops and turns hesitantly. SIGNIFICANT IMPROVEMENT SINCE LAST VISIT LIKELY DUE TO MED CHANGES. NEED TO GET LEGS STRONGER AND BUILD CONSISTENCY. fAIR PROGNOSIS FOR NEW GOALS AND NEW SCRIPT RECEIVED. Plan Plan: 2X/WEEK FOR 2-4 WEEKS FOR. GAIT CHALLENGES...ENSURE CONSISTENCY WITH JUST SUPERVISION ASSIST, PICK ITEMS UP OFF FLOOR, TURN ADN STOP, STEP OVER OBJECTS AND STEPS. WILL HAVE OT EVAL FOR POSSIBLE HOME VISIT. Goals Goal 1:: Walk with one person supervision CGA as prior to last weeks incident consistently. Goal Time Frame: 4-6 Weeks Goal Progress: Progressing Goal 2:: Transfer safe and I with one supervisor glycerin to and fro chair Goal Time Frame: 4-6 Weeks Goal Progress: Goal Met Goal 3:: Walk 300 feet with one person CGA safe and consistent Goal Time Frame: 4-6 Weeks Goal Progress: Goal Met Goal 4:: Stand 60 seconds without LOB Goal Time Frame: 4-6 Weeks Goal Progress: Goal Met Goal 5:: Pt will cue appropriately when wants to rest or sit. Goal Time Frame: 4-6 Weeks Goal Progress: Goal Met Goal 6:: pT READY TO RETURN BACK TO [employer] Goal Time Frame: 2-4 Weeks Goal Progress: NEW GOAL Anticipated Interventions Patient/Client Instruction: Educate patient on: Condition, Plan of Care Therapeutic Exercise to Include: Strength training, Gait and locomotor training For the Purpose of:: To increase tolerance to activity/condition/position, To improve safety with gait Please do not hesitate to contact me at [phone] by phone or if you have questions or concerns regarding this new plan of care! Sincerely, Michael Noble, DPT, OCS, CSCS
--- NOTE | 2018-08-29 14:28 | HP.OTEVAL ---
Patient's Visit Information JAVON ESPINOZA is a 43 year old M, referred to Occupational Therapy by ISABELL LEIJA, with a diagnosis of Gait and balance, Generalized convulsive epilepsy with intractable epilepsy. Date of Evaluation: 08/20/18 Occupational Therapist: Patricia Lezama, AARON/Amy, CHT - Subjective Subjective: This 43-year-old male was brought to [facility] due to frequent falls and need of home assessment. pt mother states pt was falling end of May- Jul. PT was falls in living room, bed room, kitchen. family room and bed room are carpeted, No amb. device. falls in am getting out of bed. falls getting off couch. fall getting off of floor from style sitting. likes to cut corners and so foam placed on corners of the house. bathroom is pocket slide door and possible pt may need more grab bars in bathroom. walk in shower, grab bars in shower, shower chair with arm rest. has a wc will use when unsteady. has hospital bed. has hospital bed against one wall, recliner for staff in his room. adaptive eq. has shower chair, bedside commode over comfort toilet, does not use ad. eq for eating. Family wondering if a protective helmet would be appropriate. D/C from hospital first week of Aug. [facility] 7 day stay no formal therapy given. pt does go to the workshop- and hopeful will return soon. Mon-Mon- Monday three days- start half days- possible next few weeks returning - ADLs Comments: staff will assist with dressing SBA level Eating: Bring food to mouth, Use silverware, Cut food, Drink from glass Comments: with staff at SBA level Comments: pt lives in two bedroom correction with 24 hour care. Staff reports pt is SBA level for most of his bathing/dressing and self care tasks. pt has made some improvments with his ambulation and strength since medication changes but staff and pts mom would like to do what they can to decrease falls in his home and increase his safety. Address is. [address] [place] [address]. [facility] [place]. administrator of home health is Yudi [phone] - Rehabilitation General Assessment: pt lives in two-bedroom correction with 24-hour care. Staff reports pt is SBA level for most of his bathing/dressing and self-care tasks. pt has made some improvements with his ambulation and strength since medication changes but staff and pts mom would like to do what they can to decrease falls in his home and increase his safety. Therapist completed home visit on 08/29/18. Pts home is a ranch duplex with ramp entry. Home is well maintained, well clean and free of clutter. Padding at the bottom each arch way between rooms corners to protect pts toes from hitting the corners. (therapist advised possible placing padding (4?) horizontal at pts shoulder height or slightly lower to give visual cue to keep distance from entry corners). staff and pts mother are receptive to adapting. Bathroom is a walking in shower with shower chair and grab bars- toilet is comfort toilet and a bedside commode is available to place over comfort toilet to provide hand rails. Per staff pt does stand to urinate and places hands on a towel rack behind the toilet. (therapist advised for safety replacing 30 towel rack for appropriate grab bar to increase safety with pts toileting) staff and family receptive. Pt bedroom - pt has hospital bed with railing. Due to seizure activity therapist rec'd use of protective padding on bilateral bed rails. - Anticipated Interventions Other Interventions: Home modification and safety - Visit Plan Frequency: 1x/Week Duration: 1 Week TEXT: Thank you for the opportunity to evaluate your patient. For Medicare and Medicare HMO plans, please review the plan of care and approve it. It will need to be FAXED BACK to us at [phone] for Medicare purposes. Please let me know if there are questions or concerns regarding this plan of care. Physician Signature: Date:
--- NOTE | 2018-08-31 10:48 | HP.PTREVAL_ITS ---
ISABELL LEIJA, It has been my pleasure to treat JAVON ESPINOZA over the last 11 visits for Unsteady gait. Please see the progress note below for an update on the physical therapy plan of care! Subjective: Mom says doing much better. Lost some weight and standing up taller and not dragging L foot like he used to. Will have a meeting Monday on ret urning to the workshop. Was doing 6 hour days 3 days per week but has option to sart shorter. Teacher in that class room to help him as needed. No steps on a regular basis. Ordered cones adn hurdles to work on at home Objective/Function: Trasnfer chair I without UE. Gait is as behavior allows SBA full lap without difficulty. Stand up taller and not looking down often. steps over hurdles with CGA and bends to retrieve cone SBA. Plan Plan: weekly x 4 to wean back to workshop and off of therapy. Focus on teaching caretakers, in/out cones, over hurdles and step up on box as safety allows as ex. Goals Goal 1:: Walk with one person supervision CGA as prior to last weeks incident consistently. Goal Time Frame: 4-6 Weeks Goal Progress: Goal Met Goal 2:: Radiological Technician I in appropriate ex to cotninue 3x/week with supervisoon at home. Goal Time Frame: 2-4 Weeks Goal Progress: NEW GOAL Goal 3:: Return back to full workshop without issues. Goal Time Frame: 2-4 Weeks Goal Progress: NEW GOAL Goal 4:: Stand 60 seconds without LOB Goal Time Frame: 4-6 Weeks Goal Progress: Goal Met Goal 5:: Pt will cue appropriately when wants to rest or sit. Goal Time Frame: 4-6 Weeks Goal Progress: Goal Met Goal 6:: pT READY TO RETURN BACK TO [employer] Goal Time Frame: 2-4 Weeks Goal Progress: Goal Met Anticipated Interventions Patient/Client Instruction: Educate patient on: Condition, Plan of Care Therapeutic Exercise to Include: Strength training, Gait and locomotor training For the Purpose of:: To increase tolerance to activity/condition/position, To improve safety with gait Please do not hesitate to contact me at [phone] by phone or if you have questions or concerns regarding this new plan of care! Sincerely, Michael Dickey, DPT, OCS, CSCS
--- NOTE | 2018-09-27 11:39 | HP.PTDCSUM_ITS ---
HP - PT D/C Summary It has been my pleasure to treat JAVON ESPINOZA under orders from ISABELL LEIJA, for the diagnosis of Unsteady gait for a total of 15 visit(s). Discharge Date: 09/27/18 Please see the following information for a summary of their discharge status. - Subjective Subjective: Doing well. At workshop half days 3x/per week. Will eventually go back full days. Taking it slow. Walking at the [employer]. Doing cones at home and ball toss. Standing up straighter and walking better according to mom. Will see epilieptologist Monday. A few seizures but otherwise doing better on current meds with a tradeoff for having some seizures. - Overall Improvement % Improvement: 95 - Objective Objective/Function: goals met, walking excellent without hesitation adn I. Stepping over hurdles I. Desizing Machine Operator Head End adn mom very happy with progress. - Goals Goal 1:: Walk with one person supervision CGA as prior to last weeks incident consistently. Goal Progress: Goal Met Goal 2:: Desizing Machine Operator Head End I in appropriate ex to cotninue 3x/week with supervisoon at home. Goal Progress: Goal Met Goal 3:: Return back to full workshop without issues. Goal Progress: taking it slow. Goal 4:: Stand 60 seconds without LOB Goal Progress: Goal Met Goal 5:: Pt will cue appropriately when wants to rest or sit. Goal Progress: Goal Met Goal 6:: pT READY TO RETURN BACK TO [employer] Goal Progress: Goal Met - Plan Plan: D/C - D/C Information Discharge Comments: Patient doing very well and likely back to baseline. Mom is happy and they will continue with caretakers help via HEP. wean back to full days at workshop. If there are questions or concerns regarding this patient's physical therapy, please feel free to call me at [phone]. Thank you for the referral of this patient. Sincerely, Michael Dickey, DPT, OCS, CSCS
== END 2018-09-27 19:00 | disposition home or self-care (01) ==
LOC: PT 11:00
PROVIDERS: Family Provider Family Medicine; PCP Family Medicine
DX: G80.9 Cerebral palsy, unspecified (principal)
CPT/HCPCS: 97110; 97116; 97162; 97166; 97530

== ENCOUNTER → 2018-10-24 15:38 | Outpatient (CLI) | payer MEDICARE, MEDICAID, SELFPAY ==
[2018-10-24 16:41] LABS: AST(SGOT) 24 U/L (15-37); Alanine Aminotransfer ALT/SGPT 23 U/L (16-61); Albumin, Serum 4.2 g/dL (3.2-5.0); Alkaline Phosphatase 113 U/L (45-117); Anion Gap 5 (5-15); BUN 15 mg/dL (7-18); Bilirubin, Direct 0.05 mg/dL (0.00-0.30); Chloride 110 mmol/L (98-107); Creatinine, Serum 0.93 mg/dL (0.70-1.30); EST Glomerular Filtration Rate 94 mL/min (>60); Est Glom Filt Rate - Afr Amer 113 mL/min (>60); Globulin 3.4 g/dL (2.2-4.2); Protein, Total 7.6 g/dL (6.4-8.2); Sodium Level 139 mmol/L (136-145)
[2018-10-24 16:43] LABS: Absolute Lymphocyte Count 1.65 X10^3/ul (0.83-4.51); Absolute Neutrophil Count 6.1 X10^3/uL (2.0-7.7); Basophil# 0.02 X10^3/uL; Basophil% 0.2 % (0-1); Eosinophil# 0.05 X10^3/uL; Eosinophils% 0.6 % (0-5); Hematocrit 44.4 % (40-54); Hemoglobin 15.1 g/dl (13.0-16.5); Lymphocyte # 1.65 X10^3/ul (4.0); Lymphocyte % 18.8 % (19-41); Mean Corpuscular Hgb 31.2 pg (27.0-32.0); Mean Corpuscular Volume 91.7 fL (80-94); Monocyte# 0.92 X10^3/uL; Monocyte% 10.5 % (0-10); Neutrophil # 6.14 X10^3/uL (2.7-7.7); Neutrophil % 69.7 % (47-70); POSITIVE COUNT NO; POSITIVE DIFFERENTIAL NO; POSITIVE MORPHOLOGY NO; Platelet Count 197 K/mm3 (150-450); RBC Distribution Width CV 12.9 % (11.6-14.6); RBC Distribution Width SD 42.6 fl (35.1-43.9); Red Blood Count 4.84 M/mm3 (4.6-6.2); White Blood Count 8.8 K/mm3 (4.4-11.0)
[2018-10-26 13:14] LABS: Immunoglobulin G 929 mg/dL (700-1600)
== END ==
PROVIDERS: Family Provider Family Medicine; PCP Family Medicine; Referring Provider Allergy & Immunology; Visit Provider Allergy & Immunology
DX: D83.9 Common variable immunodeficiency, unspecified (principal)
CPT/HCPCS: 80051; 80076; 82565; 82784; 84520; 85025; 99211; A4216; G0463

== ENCOUNTER → 2018-11-28 15:20 | Outpatient (CLI) | payer MEDICARE, MEDICAID, SELFPAY | PROVIDERS: Family Provider Family Medicine; PCP Family Medicine; Referring Provider Allergy & Immunology; Visit Provider Allergy & Immunology | DX: D83.9 Common variable immunodeficiency, unspecified (principal) | CPT/HCPCS: 99211; A4216; G0463 ==

== ENCOUNTER → 2019-01-01 14:44 | Outpatient (CLI) | payer MEDICARE, MEDICAID, SELFPAY | PROVIDERS: Family Provider Family Medicine; PCP Family Medicine; Referring Provider Allergy & Immunology; Visit Provider Allergy & Immunology | DX: D83.9 Common variable immunodeficiency, unspecified (principal) | CPT/HCPCS: 99211; A4216; G0463 ==

== ENCOUNTER → 2019-02-06 14:52 | Outpatient (CLI) | payer MEDICARE, MEDICAID, SELFPAY | PROVIDERS: Family Provider Family Medicine; PCP Family Medicine; Referring Provider Allergy & Immunology; Visit Provider Allergy & Immunology | DX: D83.9 Common variable immunodeficiency, unspecified (principal) | CPT/HCPCS: 99211; A4216; G0463 ==

== ENCOUNTER → 2019-02-22 13:51 | Outpatient (CLI) | payer MEDICARE, MEDICAID, SELFPAY ==
--- NOTE | 2019-02-22 14:11 | EKG12_ITS ---
Test Reason : Blood Pressure : / mmHG Vent. Rate : 088 BPM Atrial Rate : 088 BPM P-R Int : 150 ms QRS Dur : 098 ms QT Int : 372 ms P-R-T Axes : 072 075 040 degrees QTc Int : 450 ms Normal sinus rhythm Normal ECG Confirmed by PARVEZ HARTMAN, CHIRAG ([id number]), editor producer CIRA BURROUGHS ([id number]) on 02/25/2019 12:02:01 PM Referred By: OUT DOCTOR Confirmed By:CHIRAG HANNON MD
[2019-02-27 10:18] LABS: Topiramate 4.8 ug/mL (2.0-25.0)
== END ==
PROVIDERS: Family Provider Family Medicine; PCP Family Medicine
DX: K72.90 Hepatic failure, unspecified without coma (principal)
CPT/HCPCS: 36415; 80201; 82140; 93005

== ENCOUNTER → 2019-03-13 14:50 | Outpatient (CLI) | payer MEDICARE, MEDICAID, SELFPAY | PROVIDERS: Family Provider Family Medicine; PCP Family Medicine; Referring Provider Allergy & Immunology; Visit Provider Allergy & Immunology | DX: D83.9 Common variable immunodeficiency, unspecified (principal) | CPT/HCPCS: 99211; A4216; G0463 ==

== ENCOUNTER → 2019-03-25 15:06 | Outpatient (CLI) | payer MEDICARE, MEDICAID, SELFPAY | PROVIDERS: Family Provider Family Medicine; PCP Family Medicine; Referring Provider Allergy & Immunology; Visit Provider Allergy & Immunology | DX: D83.9 Common variable immunodeficiency, unspecified (principal) | CPT/HCPCS: 99211; A4216; G0463 ==

== ENCOUNTER → 2019-04-11 09:28 | Outpatient (CLI) | payer MEDICARE, MEDICAID, SELFPAY ==
--- NOTE | 2019-04-11 09:35 | EKG12_ITS ---
Test Reason : Blood Pressure : / mmHG Vent. Rate : 083 BPM Atrial Rate : 083 BPM P-R Int : 166 ms QRS Dur : 096 ms QT Int : 384 ms P-R-T Axes : 089 082 075 degrees QTc Int : 451 ms Normal sinus rhythm Normal ECG Confirmed by FILIBERTO HARTMAN, NICOLASA ([id number]), associate editor CIRA BURROUGHS ([id number]) on 04/17/2019 9:25:02 A M Referred By: OUT DOCTOR Confirmed By:KASIE DE LOS SANTOS MD
== END ==
PROVIDERS: Family Provider Family Medicine; PCP Family Medicine
DX: Z79.899 Other long term (current) drug therapy (principal)
CPT/HCPCS: 93005

== ENCOUNTER → 2019-05-01 16:08 | Outpatient (CLI) | payer MEDICARE, MEDICAID, SELFPAY | PROVIDERS: Family Provider Family Medicine; PCP Family Medicine; Referring Provider Allergy & Immunology; Visit Provider Allergy & Immunology | DX: D83.9 Common variable immunodeficiency, unspecified (principal) | CPT/HCPCS: 99211; A4216; G0463 ==

== ENCOUNTER → 2019-05-22 13:08 | Outpatient (CLI) | payer MEDICARE, MEDICAID, SELFPAY ==
[2019-05-22 13:30] LABS: Absolute Lymphocyte Count 1.95 X10^3/uL (0.83-4.51); Absolute Neutrophil Count 5.6 X10^3/uL (2.0-7.7); Basophil# 0.06 X10^3/uL; Basophil% 0.7 % (0-1); Eosinophil# 0.06 X10^3/uL; Eosinophils% 0.7 % (0-5); Hematocrit 45.2 % (40-54); Hemoglobin 15.2 g/dL (13.0-16.5); Lymphocyte # 1.95 X10^3/ul (4.0); Lymphocyte % 22.9 % (19-41); Mean Corp Hgb Conc 33.6 g/dL (32-36); Mean Corpuscular Hgb 30.7 pg (27.0-32.0); Mean Corpuscular Volume 91.3 fL (80-94); Mean Platelet Vol. 11.5 fl (6.2-12.0); Monocyte# 0.83 X10^3/uL; Monocyte% 9.7 % (0-10); NRBC Flagged by Analyzer 0 % (0-5); Neutrophil # 5.55 X10^3/uL (2.7-7.7); Neutrophil % 65.2 % (47-70); Platelet Count 181 K/mm3 (150-450); RBC Distribution Width CV 12.8 % (11.6-14.6); RBC Distribution Width SD 42.5 fl (35.1-43.9); Red Blood Count 4.95 M/mm3 (4.6-6.2); White Blood Count 8.5 K/mm3 (4.4-11.0)
[2019-05-22 14:02] LABS: AST(SGOT) 20 U/L (15-37); Alanine Aminotransfer ALT/SGPT 29 U/L (16-61); Alkaline Phosphatase 95 U/L (45-117); Anion Gap 9 (5-15); BUN 17 mg/dL (7-18); Bilirubin, Direct 0.08 mg/dL (0.00-0.30); Chloride 111 mmol/L (98-107); Creatinine, Serum 0.88 mg/dL (0.70-1.30); EST Glomerular Filtration Rate 99 mL/min (>60); Est Glom Filt Rate - Afr Amer 120 mL/min (>60); Globulin 3.8 g/dL (2.2-4.2); Potassium 3.9 mmol/L (3.5-5.1); Protein, Total 7.8 g/dL (6.4-8.2); Sodium Level 144 mmol/L (136-145)
[2019-05-23 10:13] LABS: Immunoglobulin G 1233 mg/dL (700-1600)
== END ==
PROVIDERS: Family Provider Family Medicine; PCP Family Medicine
DX: D83.9 Common variable immunodeficiency, unspecified (principal); E72.20 Disorder of urea cycle metabolism, unspecified
CPT/HCPCS: 36415; 80051; 80076; 82140; 82565; 82784; 84520; 85025

== ENCOUNTER → 2019-05-28 08:42 | Outpatient (CLI) | payer MEDICARE, MEDICAID, SELFPAY | LOC: LAB.FUTURE 08:53 → LAB 08:57 | PROVIDERS: Family Provider Family Medicine; PCP Family Medicine | DX: G40.919 Epilepsy, unspecified, intractable, without status epilepticus (principal) | CPT/HCPCS: 36415; 82140 ==

== ENCOUNTER → 2019-06-03 12:07 | Outpatient (CLI) | payer MEDICARE, MEDICAID, SELFPAY | PROVIDERS: Family Provider Family Medicine; PCP Family Medicine; Referring Provider Allergy & Immunology; Visit Provider Allergy & Immunology | DX: Z45.2 Encounter for adjustment and management of vascular access device (principal); D83.9 Common variable immunodeficiency, unspecified | CPT/HCPCS: 99211; A4216; G0463 ==

== ENCOUNTER → 2019-07-08 12:23 | Outpatient (CLI) | payer MEDICARE, MEDICAID, SELFPAY | PROVIDERS: Family Provider Family Medicine; PCP Family Medicine; Referring Provider Allergy & Immunology; Visit Provider Allergy & Immunology | DX: Z45.2 Encounter for adjustment and management of vascular access device (principal); D83.9 Common variable immunodeficiency, unspecified | CPT/HCPCS: 99211; A4216; G0463 ==

== ENCOUNTER → 2019-08-13 11:45 | Outpatient (CLI) | payer MEDICARE, MEDICAID, SELFPAY ==
[2019-08-13 12:36] LABS: Absolute Lymphocyte Count 1.94 X10^3/uL (0.83-4.51); Absolute Neutrophil Count 5.6 X10^3/uL (2.0-7.7); BUN 20 mg/dL (7-18); Basophil# 0.05 X10^3/uL; Basophil% 0.6 % (0-1); Creatinine, Serum 0.89 mg/dL (0.70-1.30); Eosinophil# 0.05 X10^3/uL; Eosinophils% 0.6 % (0-5); Glucose 104 mg/dL (74-106); Hematocrit 44.3 % (40-54); Hemoglobin 14.9 g/dL (13.0-16.5); Lymphocyte # 1.94 X10^3/ul (4.0); Lymphocyte % 22.5 % (19-41); Mean Corp Hgb Conc 33.6 g/dL (32-36); Mean Corpuscular Hgb 30.2 pg (27.0-32.0); Mean Corpuscular Volume 89.9 fL (80-94); Mean Platelet Vol. 11.4 fl (6.2-12.0); Monocyte# 0.87 X10^3/uL; Monocyte% 10.1 % (0-10); NRBC Flagged by Analyzer 0 % (0-5); Neutrophil # 5.63 X10^3/uL (2.7-7.7); Neutrophil % 65.3 % (47-70); Platelet Count 180 K/mm3 (150-450); RBC Distribution Width SD 42.5 fl (35.1-43.9); Red Blood Count 4.93 M/mm3 (4.6-6.2); White Blood Count 8.6 K/mm3 (4.4-11.0)
[2019-08-13 12:37] LABS: ALB/GLOB Ratio 1.1 RATIO (0.9-2.4); AST(SGOT) 17 U/L (15-37); Alanine Aminotransfer ALT/SGPT 30 U/L (16-61); Albumin, Serum 3.9 g/dL (3.2-5.0); Alkaline Phosphatase 98 U/L (45-117); Anion Gap 8 (5-15); BUN/Creat Ratio 22.5 RATIO (10-20); Calcium,Total 8.4 mg/dL (8.5-10.1); Chloride 113 mmol/L (98-107); EST Glomerular Filtration Rate 99 mL/min (>60); Est Glom Filt Rate - Afr Amer 119 mL/min (>60); Globulin 3.5 g/dL (2.2-4.2); Potassium 3.8 mmol/L (3.5-5.1); Protein, Total 7.4 g/dL (6.4-8.2); Sodium Level 143 mmol/L (136-145)
[2019-08-14 12:29] LABS: Immunoglobulin G 873 mg/dL (700-1600)
== END ==
PROVIDERS: PCP Family Medicine; Referring Provider Allergy & Immunology; Visit Provider Allergy & Immunology
DX: Z45.2 Encounter for adjustment and management of vascular access device (principal); D83.9 Common variable immunodeficiency, unspecified
CPT/HCPCS: 80053; 82784; 85025; 99211; A4216; G0463

== ENCOUNTER → 2019-09-19 11:48 | Outpatient (CLI) | payer MEDICARE, MEDICAID, SELFPAY ==
[2019-09-19] MEDS: 0.9% NaCl Peripheral Flush Adult/Peds IV (12:33)
== END ==
PROVIDERS: PCP Family Medicine; Referring Provider Allergy & Immunology; Visit Provider Allergy & Immunology
DX: D83.9 Common variable immunodeficiency, unspecified (principal)
CPT/HCPCS: 99211; A4216; G0463

== ENCOUNTER → 2019-10-21 11:27 | Outpatient (CLI) | payer MEDICARE, MEDICAID, SELFPAY ==
[2019-10-21] MEDS: 0.9% NaCl Peripheral Flush Adult/Peds IV (11:45)
== END ==
PROVIDERS: PCP Family Medicine; Referring Provider Allergy & Immunology; Visit Provider Allergy & Immunology
DX: Z45.2 Encounter for adjustment and management of vascular access device (principal); D83.9 Common variable immunodeficiency, unspecified
CPT/HCPCS: 99211; A4216; G0463

== ENCOUNTER → 2019-11-07 | Outpatient (CLI) | payer MEDICARE, MEDICAID, SELFPAY ==
[2019-11-07 15:14] LABS: Bacteria 0 SEEN /hpf (None Seen); Mucous, Urine 0 SEEN /hpf (<or=2+); Red Blood Cells-Urine 0 SEEN /hpf (0-5); White Blood Cells 0 SEEN /hpf (0-5)
[2019-11-07 15:36] LABS: Color, Urine Yellow (Yellow); Glucose, Dipstick Normal (Normal); Ketone-Dipstick Negative (Negative); Leukocyte Esterase-Dipstick Negative /ul (Negative); Nitrite-Dipstick Negative (Negative); Occult Blood-Urine Negative /ul (Negative); Protein-Dipstick Negative (Negative); Specific Gravity, Urine 1.005 (1.002-1.030); Urine Bilirubin Dipstick Negative (Negative); Urine Clarity Clear (Clear); Urine Urobilinogen Normal (Normal)
[2019-11-07 15:42] LABS: Squamous Epithelial Cells - UA 0-5 SEEN /hpf (0-5)
== END | disposition home or self-care (01) ==
LOC: LABSPEC 12:36
PROVIDERS: PCP Family Medicine; Referring Provider Family Medicine; Visit Provider Family Medicine
DX: N39.0 Urinary tract infection, site not specified (principal)
CPT/HCPCS: 81001; 87086

== ENCOUNTER → 2019-11-19 08:34 | Outpatient (CLI) | payer MEDICARE, MEDICAID, SELFPAY ==
--- NOTE | 2019-11-19 08:41 | RAD_ITS ---
STUDY: X-RAY - RIGHT HAND REASON FOR EXAM: Male, 44 years old. PATIENT IS MR PATIENT. WRIST ORDER INCLUDED ON HAND IMAGES DUE TO COOPERATION FROM PATIENT. PT HAS BEEN HITTING HIS HAND/WRIST WITH BRUISING TECHNIQUE: 3 view(s) of the hand. COMPARISON: None. FINDINGS: No acute fracture, dislocation or osseous destruction. No significant joint space narrowing. No significant productive changes. No significant soft tissue swelling. No radiopaque foreign body. RAD/Hand Min 3 Views IMPRESSION: Right hand intact No radiopaque foreign body (cleared for MRI) Electronically Signed: Michael Platt DO at 9:31 EDT Tel , Service support ,
== END ==
PROVIDERS: PCP Family Medicine; Referring Provider Family Medicine; Visit Provider Family Medicine
DX: S60.221A Contusion of right hand, initial encounter (principal); X58.XXXA Exposure to other specified factors, initial encounter; Y93.9 Activity, unspecified; Y92.9 Unspecified place or not applicable; Y99.9 Unspecified external cause status
CPT/HCPCS: 73130

== ENCOUNTER → 2019-11-28 11:29 | Outpatient (CLI) | payer MEDICARE, MEDICAID, SELFPAY ==
[2019-11-28 12:40] LABS: Phenytoin (Dilantin) Level 12.6 mL (10.0-20.0)
[2019-11-29 21:23] LABS: KEPPRA (LEVETIRACETAM) 36.7 ug/mL (10.0-40.0); Topiramate 7.1 ug/mL (2.0-25.0)
== END ==
PROVIDERS: PCP Family Medicine; Referring Provider Allergy & Immunology; Visit Provider Allergy & Immunology
DX: G40.919 Epilepsy, unspecified, intractable, without status epilepticus (principal)
CPT/HCPCS: 80177; 80185; 80201; 99211; A4216; G0463

== ENCOUNTER → 2020-01-02 11:31 | Outpatient (CLI) | payer MEDICARE, MEDICAID, SELFPAY | PROVIDERS: PCP Family Medicine; Referring Provider Allergy & Immunology; Visit Provider Allergy & Immunology | DX: Z45.2 Encounter for adjustment and management of vascular access device (principal); D83.9 Common variable immunodeficiency, unspecified | CPT/HCPCS: 99211; A4216; G0463 ==

== ENCOUNTER → 2020-02-05 11:29 | Outpatient (CLI) | payer MEDICARE, MEDICAID, SELFPAY | PROVIDERS: PCP Family Medicine; Referring Provider Allergy & Immunology; Visit Provider Allergy & Immunology | DX: Z45.2 Encounter for adjustment and management of vascular access device (principal) | CPT/HCPCS: 99211; A4216; G0463 ==

== ENCOUNTER → 2020-03-11 08:30 | Outpatient (CLI) | payer MEDICARE, MEDICAID, SELFPAY ==
[2020-03-11 09:13] LABS: Absolute Lymphocyte Count 1.29 X10^3/uL (0.83-4.51); Absolute Neutrophil Count 7.6 X10^3/uL (2.0-7.7); Basophil# 0.04 X10^3/uL; Basophil% 0.4 % (0-1); Eosinophil# 0.02 X10^3/uL; Eosinophils% 0.2 % (0-5); Hematocrit 46.4 % (40-54); Hemoglobin 15.9 g/dL (13.0-16.5); Lymphocyte # 1.29 X10^3/ul (4.0); Lymphocyte % 13.4 % (19-41); Mean Corp Hgb Conc 34.3 g/dL (32-36); Mean Corpuscular Hgb 30.8 pg (27.0-32.0); Mean Corpuscular Volume 89.9 fL (80-94); Mean Platelet Vol. 11.3 fl (6.2-12.0); Monocyte# 0.66 X10^3/uL; Monocyte% 6.8 % (0-10); NRBC Flagged by Analyzer 0 % (0-5); Neutrophil # 7.56 X10^3/uL (2.7-7.7); Neutrophil % 78.5 % (47-70); Platelet Count 234 K/mm3 (150-450); RBC Distribution Width CV 12.5 % (11.6-14.6); RBC Distribution Width SD 41.3 fl (35.1-43.9); Red Blood Count 5.16 M/mm3 (4.6-6.2); White Blood Count 9.6 K/mm3 (4.4-11.0)
[2020-03-11 09:30] LABS: Phenytoin (Dilantin) Level 10.1 mL (10.0-20.0)
[2020-03-11 09:31] LABS: ALB/GLOB Ratio 1.1 RATIO (0.9-2.4); AST(SGOT) 22 U/L (15-37); Alanine Aminotransfer ALT/SGPT 27 U/L (16-61); Albumin, Serum 4.1 g/dL (3.2-5.0); Alkaline Phosphatase 82 U/L (45-117); Anion Gap 6 (5-15); BUN 18 mg/dL (7-18); BUN/Creat Ratio 22.8 RATIO (10-20); Calcium,Total 8.9 mg/dL (8.5-10.1); Chloride 112 mmol/L (98-107); Creatinine, Serum 0.79 mg/dL (0.70-1.30); EST Glomerular Filtration Rate 113 mL/min (>60); Est Glom Filt Rate - Afr Amer 136 mL/min (>60); Globulin 3.8 g/dL (2.2-4.2); Glucose 103 mg/dL (74-106); Potassium 3.7 mmol/L (3.5-5.1); Protein, Total 7.9 g/dL (6.4-8.2); Sodium Level 142 mmol/L (136-145)
[2020-03-14 08:40] LABS: Immunoglobulin G 981 mg/dL (603-1613); KEPPRA (LEVETIRACETAM) 24.3 ug/mL (10.0-40.0); Topiramate 4.6 ug/mL (2.0-25.0)
== END ==
PROVIDERS: PCP Family Medicine; Referring Provider Allergy & Immunology; Visit Provider Allergy & Immunology
DX: Z45.2 Encounter for adjustment and management of vascular access device (principal); D83.9 Common variable immunodeficiency, unspecified; G40.909 Epilepsy, unspecified, not intractable, without status epilepticus
CPT/HCPCS: 80053; 80177; 80185; 80201; 82784; 85025; 99211; A4216; G0463

== ENCOUNTER → 2020-04-07 11:32 | Outpatient (CLI) | payer MEDICARE, MEDICAID, SELFPAY | PROVIDERS: PCP Family Medicine; Referring Provider Allergy & Immunology; Visit Provider Allergy & Immunology | DX: Z45.2 Encounter for adjustment and management of vascular access device (principal) | CPT/HCPCS: 99211; A4216; G0463 ==

== ENCOUNTER → 2020-05-19 11:04 | Outpatient (CLI) | payer MEDICARE, MEDICAID, SELFPAY | PROVIDERS: PCP Family Medicine; Referring Provider Allergy & Immunology; Visit Provider Allergy & Immunology | DX: Z45.2 Encounter for adjustment and management of vascular access device (principal) | CPT/HCPCS: 99211; A4216; G0463 ==

== ENCOUNTER → 2020-06-30 11:42 | Outpatient (CLI) | payer MEDICARE, MEDICAID, SELFPAY | PROVIDERS: PCP Family Medicine; Referring Provider Allergy & Immunology; Visit Provider Allergy & Immunology | DX: D83.9 Common variable immunodeficiency, unspecified (principal) | CPT/HCPCS: 99211; A4216; G0463 ==

== ENCOUNTER → 2020-08-11 12:33 | Outpatient (CLI) | payer MEDICARE, MEDICAID, SELFPAY | PROVIDERS: PCP Family Medicine; Referring Provider Allergy & Immunology; Visit Provider Allergy & Immunology | DX: Z45.2 Encounter for adjustment and management of vascular access device (principal); D83.9 Common variable immunodeficiency, unspecified | CPT/HCPCS: 99211; G0463 ==

== ENCOUNTER → 2020-09-24 11:33 | Outpatient (CLI) | payer MEDICARE, MEDICAID, SELFPAY ==
[2020-09-24 12:26] LABS: Absolute Lymphocyte Count 1.97 X10^3/uL (0.83-4.51); Absolute Neutrophil Count 6.4 X10^3/uL (2.0-7.7); Basophil# 0.07 X10^3/uL; Basophil% 0.7 % (0-1); Eosinophil# 0.06 X10^3/uL; Eosinophils% 0.6 % (0-5); Hematocrit 43.9 % (40-54); Hemoglobin 14.9 g/dL (13.0-16.5); Lymphocyte # 1.97 X10^3/ul (4.0); Lymphocyte % 20.8 % (19-41); Mean Corp Hgb Conc 33.9 g/dL (32-36); Mean Corpuscular Hgb 30.8 pg (27.0-32.0); Mean Corpuscular Volume 90.9 fL (80-94); Monocyte# 0.81 X10^3/uL; Monocyte% 8.6 % (0-10); NRBC Flagged by Analyzer 0 % (0-5); Neutrophil # 6.43 X10^3/uL (2.7-7.7); Neutrophil % 68.1 % (47-70); Platelet Count 218 K/mm3 (150-450); RBC Distribution Width CV 12.5 % (11.6-14.6); RBC Distribution Width SD 41.1 fl (35.1-43.9); Red Blood Count 4.83 M/mm3 (4.6-6.2); White Blood Count 9.5 K/mm3 (4.4-11.0)
[2020-09-24 12:53] LABS: ALB/GLOB Ratio 1.2 RATIO (0.9-2.4); AST(SGOT) 18 U/L (15-37); Alanine Aminotransfer ALT/SGPT 40 U/L (16-61); Alkaline Phosphatase 63 U/L (45-117); Anion Gap 8 (5-15); BUN 16 mg/dL (7-18); BUN/Creat Ratio 22.1 RATIO (10-20); Calcium,Total 8.8 mg/dL (8.5-10.1); Chloride 111 mmol/L (98-107); Cholesterol 203 mg/dL (200); Creatinine, Serum 0.72 mg/dL (0.70-1.30); EST Glomerular Filtration Rate 124 mL/min (>60); Est Glom Filt Rate - Afr Amer 150 mL/min (>60); Globulin 3.3 g/dL (2.2-4.2); Glucose 116 mg/dL (74-106); Hemoglobin A1c 5.1 % (3.8-5.6); High Density Lipoprotein 71 mg/dL; Potassium 3.6 mmol/L (3.5-5.1); Protein, Total 7.3 g/dL (6.4-8.2); Sodium Level 142 mmol/L (136-145); T4 Free Direct 0.79 ng/dL (0.76-1.46); Thyroid Stim Hormone (TSH) 1.34 uIU/mL (0.358-3.74); Triglycerides 286 mg/dL; Very Low Density Lipoprotein 57 mg/dL (5-40)
[2020-09-24 20:18] LABS: Xtra Tube EP Lab EXTRA TUBE
[2020-09-25 05:09] LABS: Immunoglobulin G 817 mg/dL (603-1613)
== END ==
PROVIDERS: PCP Family Medicine; Referring Provider Allergy & Immunology; Visit Provider Allergy & Immunology
DX: Z45.2 Encounter for adjustment and management of vascular access device (principal); D83.9 Common variable immunodeficiency, unspecified; E03.9 Hypothyroidism, unspecified; Z79.899 Other long term (current) drug therapy
CPT/HCPCS: 80053; 80061; 82784; 83036; 84439; 84443; 85025; 99211; A4216; G0463

== ENCOUNTER → 2020-10-23 08:44 | Outpatient (CLI) | payer MEDICARE, MEDICAID, SELFPAY | PROVIDERS: PCP Family Medicine | DX: U07.1 COVID-19 (principal); D83.9 Common variable immunodeficiency, unspecified | CPT/HCPCS: 36415; 86769 ==

== ENCOUNTER → 2020-11-03 11:31 | Outpatient (CLI) | payer MEDICARE, MEDICAID, SELFPAY | PROVIDERS: PCP Family Medicine; Referring Provider Allergy & Immunology; Visit Provider Allergy & Immunology | DX: D83.9 Common variable immunodeficiency, unspecified (principal) | CPT/HCPCS: 99211; A4216; G0463 ==

== ENCOUNTER → 2020-12-16 | Outpatient (CLI) | payer MEDICARE, MEDICAID, SELFPAY | END | disposition home or self-care (01) | LOC: MEDOUTP 11:35 | PROVIDERS: PCP Family Medicine; Referring Provider Allergy & Immunology; Visit Provider Allergy & Immunology | DX: Z45.2 Encounter for adjustment and management of vascular access device (principal); D83.9 Common variable immunodeficiency, unspecified | CPT/HCPCS: 99211; A4216; G0463 ==

== ENCOUNTER → 2021-01-26 11:27 | Outpatient (CLI) | payer MEDICARE, MEDICAID, SELFPAY | PROVIDERS: PCP Family Medicine; Referring Provider Allergy & Immunology; Visit Provider Allergy & Immunology | DX: Z45.2 Encounter for adjustment and management of vascular access device (principal); D83.9 Common variable immunodeficiency, unspecified | CPT/HCPCS: 99211; A4216; G0463 ==

== ENCOUNTER → 2021-03-09 11:36 | Outpatient (CLI) | payer MEDICARE, MEDICAID, SELFPAY | PROVIDERS: PCP Family Medicine; Referring Provider Allergy & Immunology; Visit Provider Allergy & Immunology | DX: Z45.2 Encounter for adjustment and management of vascular access device (principal); D83.9 Common variable immunodeficiency, unspecified | CPT/HCPCS: 99211; A4216; G0463 ==

== ENCOUNTER → 2021-04-20 11:01 | Outpatient (CLI) | payer MEDICARE, MEDICAID, SELFPAY | PROVIDERS: PCP Family Medicine; Referring Provider Allergy & Immunology; Visit Provider Allergy & Immunology | DX: Z45.2 Encounter for adjustment and management of vascular access device (principal) | CPT/HCPCS: 99211; A4216; G0463 ==

== ENCOUNTER → 2021-06-03 11:28 | Outpatient (CLI) | payer MEDICARE, MEDICAID, SELFPAY ==
[2021-06-03 12:10] LABS: Absolute Lymphocyte Count 1.81 X10^3/uL (0.83-4.51); Absolute Neutrophil Count 6.6 X10^3/uL (2.0-7.7); Basophil# 0.06 X10^3/uL; Basophil% 0.6 % (0-1); Eosinophil# 0.04 X10^3/uL; Eosinophils% 0.4 % (0-5); Hematocrit 44.2 % (40-54); Hemoglobin 15.5 g/dL (13.0-16.5); Lymphocyte # 1.81 X10^3/ul (0.83-4.51); Lymphocyte % 19.1 % (19-41); Mean Corp Hgb Conc 35.1 g/dL (32-36); Mean Corpuscular Hgb 30.8 pg (27.0-32.0); Mean Corpuscular Volume 87.9 fL (80-94); Mean Platelet Vol. 11.6 fl (6.2-12.0); Monocyte# 0.83 X10^3/uL; Monocyte% 8.8 % (0-10); NRBC Flagged by Analyzer 0 % (0-5); Neutrophil # 6.63 X10^3/uL (2.7-7.7); Platelet Count 214 K/mm3 (150-450); RBC Distribution Width CV 12.4 % (11.6-14.6); RBC Distribution Width SD 40.1 fl (35.1-43.9); Red Blood Count 5.03 M/mm3 (4.6-6.2); White Blood Count 9.5 K/mm3 (4.4-11.0)
[2021-06-03 12:22] LABS: ALB/GLOB Ratio 1.1 RATIO (0.9-2.4); AST(SGOT) 22 U/L (15-37); Alanine Aminotransfer ALT/SGPT 43 U/L (16-61); Alkaline Phosphatase 72 U/L (45-117); Anion Gap 7 (5-15); BUN 17 mg/dL (7-18); BUN/Creat Ratio 24.9 RATIO (10-20); Calcium,Total 8.7 mg/dL (8.5-10.1); Chloride 112 mmol/L (98-107); Creatinine, Serum 0.68 mg/dL (0.70-1.30); EST Glomerular Filtration Rate 132 mL/min (>60); Est Glom Filt Rate - Afr Amer 160 mL/min (>60); Globulin 3.6 g/dL (2.2-4.2); Glucose 86 mg/dL (74-106); Potassium 3.7 mmol/L (3.5-5.1); Protein, Total 7.6 g/dL (6.4-8.2); Sodium Level 141 mmol/L (136-145)
[2021-06-04 08:17] LABS: Immunoglobulin G 800 mg/dL (603-1613)
== END ==
PROVIDERS: PCP Family Medicine; Referring Provider Allergy & Immunology; Visit Provider Allergy & Immunology
DX: D83.9 Common variable immunodeficiency, unspecified (principal)
CPT/HCPCS: 80053; 82784; 85025; 99211; A4216; G0463

== ENCOUNTER 2021-07-14 11:45 | Outpatient (CLI) | payer MEDICARE, MEDICAID, SELFPAY | END 2021-07-14 23:59 | disposition short-term general hospital (02) | PROVIDERS: PCP Family Medicine | DX: D83.9 Common variable immunodeficiency, unspecified (principal) | CPT/HCPCS: 99211; A4216; G0463 ==

== ENCOUNTER 2021-09-02 11:31 | Outpatient (CLI) | payer MEDICARE, MEDICAID, SELFPAY | END 2021-09-02 23:59 | disposition home or self-care (01) | LOC: MEDOUTP 11:32 | PROVIDERS: PCP Family Medicine | DX: Z45.2 Encounter for adjustment and management of vascular access device (principal); D83.9 Common variable immunodeficiency, unspecified | CPT/HCPCS: 99211; A4216; G0463 ==

== ENCOUNTER 2021-09-24 12:16 | Outpatient (CLI) | payer MEDICARE, MEDICAID, SELFPAY ==
--- NOTE | 2021-09-24 12:25 | RAD_ITS ---
STUDY: X-RAY CHEST REASON FOR EXAM: Male, 46 years old. ASTHMA TECHNIQUE: PA and lateral views of the chest. COMPARISON: June 08, 2018 chest x-ray, chest x-ray March 29, 2016. FINDINGS: There is improved aeration of the lung bases. There is visualized motion artifact on this study. There is sterile chronic appearing atelectasis and/or scarring within the lung bases. There is no demonstrated pleural abnormality. Normal size heart. There is a stable mild prominent appearance of the right paramediastinal soft tissues suggesting vascular ectasia. Normal visualized pulmonary arteries. Normal visualized aortic arch and descending thoracic aorta. Normal visualized thoracic spine. Normal visualized ribs, clavicles, and shoulders. There is no demonstrated abnormality of the visualized soft tissue structures of the upper abdomen. RAD/Chest PA and Lateral IMPRESSION: Bilateral lower lobe atelectasis and/or scarring. Improved aeration of the lungs since prior study allowing for motion artifact. Electronically Signed: Malka Johnson MD at 0:27 EDT Reading Location ID and State: [facility] / [place] Tel , Service support ,
== END 2021-09-24 23:59 | disposition home or self-care (01) ==
LOC: RAD 12:20
PROVIDERS: PCP Family Medicine; Referring Provider Internal Medicine Pulmonary Disease; Visit Provider Internal Medicine Pulmonary Disease
DX: J45.909 Unspecified asthma, uncomplicated (principal)
CPT/HCPCS: 71046

== ENCOUNTER 2021-10-21 11:35 | Outpatient (CLI) | payer MEDICARE, MEDICAID, SELFPAY | END 2021-10-21 23:59 | disposition home or self-care (01) | LOC: MEDOUTP 11:35 | PROVIDERS: PCP Family Medicine; Referring Provider Allergy & Immunology; Visit Provider Allergy & Immunology | DX: Z45.2 Encounter for adjustment and management of vascular access device (principal); D50-D89 Diseases of the blood and blood-forming organs and certain disorders involving the immune mechanism | CPT/HCPCS: 99211; A4216; G0463 ==

== ENCOUNTER → 2021-12-09 | Outpatient (CLI) | payer MEDICARE, MEDICAID, SELFPAY ==
[2021-12-09 12:03] LABS: Absolute Lymphocyte Count 1.98 X10^3/uL (0.83-4.51); Absolute Neutrophil Count 6.6 X10^3/uL (2.0-7.7); Basophil# 0.05 X10^3/uL; Basophil% 0.5 % (0-1); Eosinophil# 0.03 X10^3/uL; Eosinophils% 0.3 % (0-5); Hematocrit 42.9 % (40-54); Hemoglobin 14.7 g/dL (13.0-16.5); Lymphocyte # 1.98 X10^3/ul (0.83-4.51); Lymphocyte % 20.8 % (19-41); Mean Corp Hgb Conc 34.3 g/dL (32-36); Mean Corpuscular Hgb 30.6 pg (27.0-32.0); Mean Corpuscular Volume 89.2 fL (80-94); Mean Platelet Vol. 11.1 fl (6.2-12.0); Monocyte# 0.76 X10^3/uL; NRBC Flagged by Analyzer 0 % (0-5); Neutrophil # 6.62 X10^3/uL (2.7-7.7); Neutrophil % 69.8 % (47-70); Platelet Count 202 K/mm3 (150-450); RBC Distribution Width CV 12.6 % (11.6-14.6); RBC Distribution Width SD 41.4 fl (35.1-43.9); Red Blood Count 4.81 M/mm3 (4.6-6.2); White Blood Count 9.5 K/mm3 (4.4-11.0)
[2021-12-09 12:22] LABS: Albumin, Serum 3.8 g/dL (3.2-5.0); BUN 17 mg/dL (7-18); BUN/Creat Ratio 22.4 RATIO (10-20); Creatinine, Serum 0.76 mg/dL (0.70-1.30); EST Glomerular Filtration Rate 117 mL/min (>60); Est Glom Filt Rate - Afr Amer 141 mL/min (>60); Globulin 3.1 g/dL (2.2-4.2); Glucose 97 mg/dL (74-106); Protein, Total 6.9 g/dL (6.4-8.2)
[2021-12-09 12:23] LABS: ALB/GLOB Ratio 1.2 RATIO (0.9-2.4); AST(SGOT) 17 U/L (15-37); Alanine Aminotransfer ALT/SGPT 33 U/L (16-61); Alkaline Phosphatase 71 U/L (45-117); Anion Gap 7 (5-15); Calcium,Total 8.4 mg/dL (8.5-10.1); Chloride 113 mmol/L (98-107); Potassium 3.6 mmol/L (3.5-5.1); Sodium Level 140 mmol/L (136-145)
[2021-12-13 20:09] LABS: Immunoglobulin G 635 mg/dL (603-1613)
== END | disposition home or self-care (01) ==
LOC: MEDOUTP 11:31
PROVIDERS: PCP Family Medicine; Referring Provider Allergy & Immunology; Visit Provider Allergy & Immunology
DX: Z45.2 Encounter for adjustment and management of vascular access device (principal); D83.9 Common variable immunodeficiency, unspecified
CPT/HCPCS: 80053; 82784; 85025; 99211; A4216; G0463

== ENCOUNTER → 2021-12-23 | Outpatient (CLI) | payer MEDICARE, MEDICAID, SELFPAY ==
[2021-12-23 09:01] LABS: Absolute Lymphocyte Count 2.02 X10^3/uL (0.83-4.51); Absolute Neutrophil Count 5.6 X10^3/uL (2.0-7.7); Basophil# 0.06 X10^3/uL; Basophil% 0.7 % (0-1); Eosinophil# 0.03 X10^3/uL; Eosinophils% 0.4 % (0-5); Hematocrit 44.4 % (40-54); Hemoglobin 15.2 g/dL (13.0-16.5); Lymphocyte # 2.02 X10^3/ul (0.83-4.51); Lymphocyte % 23.6 % (19-41); Mean Corp Hgb Conc 34.2 g/dL (32-36); Mean Corpuscular Hgb 30.6 pg (27.0-32.0); Mean Corpuscular Volume 89.3 fL (80-94); Mean Platelet Vol. 10.9 fl (6.2-12.0); Monocyte# 0.81 X10^3/uL; Monocyte% 9.5 % (0-10); NRBC Flagged by Analyzer 0 % (0-5); Neutrophil # 5.59 X10^3/uL (2.7-7.7); Neutrophil % 65.3 % (47-70); Platelet Count 198 K/mm3 (150-450); RBC Distribution Width SD 42.4 fl (35.1-43.9); Red Blood Count 4.97 M/mm3 (4.6-6.2); White Blood Count 8.6 K/mm3 (4.4-11.0)
[2021-12-23 09:23] LABS: Phenytoin (Dilantin) Level 10.2 mL (10.0-20.0)
[2021-12-28 07:53] LABS: KEPPRA (LEVETIRACETAM) 27.3 ug/mL (10.0-40.0)
== END | disposition home or self-care (01) ==
PROVIDERS: PCP Family Medicine
DX: G40.919 Epilepsy, unspecified, intractable, without status epilepticus (principal)
CPT/HCPCS: 36415; 80177; 80185; 80201; 85025

== ENCOUNTER → 2022-01-20 | Outpatient (CLI) | payer MEDICARE, MEDICAID, SELFPAY ==
[2022-01-21 13:22] LABS: Immunoglobulin G 833 mg/dL (603-1613)
== END | disposition home or self-care (01) ==
LOC: MEDOUTP 11:32
PROVIDERS: Allergy & Immunology; PCP Family Medicine
DX: Z45.2 Encounter for adjustment and management of vascular access device (principal); D83.9 Common variable immunodeficiency, unspecified
CPT/HCPCS: 82784; 99211; A4216; G0463

== ENCOUNTER → 2022-03-01 | Outpatient (CLI) | payer MEDICARE, MEDICAID, SELFPAY | END | disposition home or self-care (01) | PROVIDERS: PCP Family Medicine; Referring Provider Allergy & Immunology; Visit Provider Allergy & Immunology | DX: D83.9 Common variable immunodeficiency, unspecified (principal) | CPT/HCPCS: 99211; A4216; G0463 ==

== ENCOUNTER → 2022-04-07 | Outpatient (CLI) | payer MEDICARE, MEDICAID, SELFPAY | END | disposition home or self-care (01) | LOC: MEDOUTP 11:32 | PROVIDERS: PCP Family Medicine; Referring Provider Family Medicine; Visit Provider Family Medicine | DX: D83.9 Common variable immunodeficiency, unspecified (principal) | CPT/HCPCS: 99211; A4216; G0463 ==

== ENCOUNTER → 2022-05-19 | Outpatient (CLI) | payer MEDICARE, MEDICAID, SELFPAY | END | disposition home or self-care (01) | LOC: MEDOUTP 11:32 | PROVIDERS: PCP Family Medicine; Referring Provider Allergy & Immunology; Visit Provider Allergy & Immunology | DX: D83.9 Common variable immunodeficiency, unspecified (principal) | CPT/HCPCS: 99211; A4216; G0463 ==

== ENCOUNTER → 2022-06-30 | Outpatient (CLI) | payer MEDICARE, MEDICAID, SELFPAY | END | disposition home or self-care (01) | LOC: MEDOUTP 11:36 | PROVIDERS: PCP Family Medicine; Referring Provider Allergy & Immunology; Visit Provider Allergy & Immunology | DX: D83.9 Common variable immunodeficiency, unspecified (principal) | CPT/HCPCS: 99211; A4216; G0463 ==

== ENCOUNTER → 2022-08-11 | Outpatient (CLI) | payer MEDICARE, MEDICAID, SELFPAY ==
[2022-08-11 11:54] LABS: Absolute Lymphocyte Count 2.03 X10^3/uL (0.83-4.51); Absolute Neutrophil Count 6.3 X10^3/uL (2.0-7.7); Basophil# 0.05 X10^3/uL; Basophil% 0.5 % (0-1); Eosinophil# 0.03 X10^3/uL; Eosinophils% 0.3 % (0-5); Hematocrit 44.4 % (40-54); Hemoglobin 15.2 g/dL (13.0-16.5); Lymphocyte # 2.03 X10^3/ul (0.83-4.51); Lymphocyte % 21.8 % (19-41); Mean Corp Hgb Conc 34.2 g/dL (32-36); Mean Corpuscular Hgb 30.9 pg (27.0-32.0); Mean Corpuscular Volume 90.2 fL (80-94); Monocyte# 0.82 X10^3/uL; Monocyte% 8.8 % (0-10); NRBC Flagged by Analyzer 0 % (0-5); Neutrophil # 6.33 X10^3/uL (2.7-7.7); Platelet Count 211 K/mm3 (150-450); RBC Distribution Width CV 12.7 % (11.6-14.6); Red Blood Count 4.92 M/mm3 (4.6-6.2); White Blood Count 9.3 K/mm3 (4.4-11.0)
[2022-08-11 12:10] LABS: ALB/GLOB Ratio 1.1 RATIO (0.9-2.4); AST(SGOT) 16 U/L (15-37); Alanine Aminotransfer ALT/SGPT 24 U/L (16-61); Albumin, Serum 3.9 g/dL (3.2-5.0); Alkaline Phosphatase 77 U/L (45-117); Anion Gap 9 (5-15); BUN 17 mg/dL (7-18); BUN/Creat Ratio 23.3 RATIO (10-20); Calcium,Total 8.7 mg/dL (8.5-10.1); Chloride 114 mmol/L (98-107); Creatinine, Serum 0.73 mg/dL (0.70-1.30); EST Glomerular Filtration Rate 122 mL/min (>60); Est Glom Filt Rate - Afr Amer 148 mL/min (>60); Globulin 3.4 g/dL (2.2-4.2); Glucose 92 mg/dL (74-106); Potassium 3.8 mmol/L (3.5-5.1); Protein, Total 7.3 g/dL (6.4-8.2); Sodium Level 144 mmol/L (136-145)
[2022-08-12 20:23] LABS: Immunoglobulin G 838 mg/dL (603-1613)
== END | disposition home or self-care (01) ==
LOC: MEDOUTP 11:30
PROVIDERS: PCP Family Medicine; Referring Provider Allergy & Immunology; Visit Provider Allergy & Immunology
DX: Z45.2 Encounter for adjustment and management of vascular access device (principal); D83.9 Common variable immunodeficiency, unspecified
CPT/HCPCS: 80053; 82784; 85025; 99211; A4216; G0463

== ENCOUNTER → 2022-09-29 | Outpatient (CLI) | payer MEDICARE, MEDICAID, SELFPAY | END | disposition home or self-care (01) | LOC: MEDOUTP 11:32 | PROVIDERS: PCP Family Medicine; Referring Provider Allergy & Immunology; Visit Provider Allergy & Immunology | DX: Z45.2 Encounter for adjustment and management of vascular access device (principal); D83.9 Common variable immunodeficiency, unspecified | CPT/HCPCS: 99211; A4216; G0463 ==

== ENCOUNTER 2022-11-10 11:30 | Outpatient (CLI) | payer MEDICARE, MEDICAID, SELFPAY | END 2022-11-10 11:31 | disposition home or self-care (01) | LOC: MEDOUTP 11:30 | PROVIDERS: PCP Family Medicine; Referring Provider Allergy & Immunology; Visit Provider Allergy & Immunology | DX: D83.9 Common variable immunodeficiency, unspecified (principal) | CPT/HCPCS: 99211; A4216; G0463 ==

== ENCOUNTER 2023-02-08 01:54 | Emergency (ER) | payer MEDICARE, MEDICAID, SELFPAY ==
[2023-02-08 01:56] VITALS: BP 133/88; PULSE 116; RESP 16; TEMP 36.9; O2SAT 98; BMI 27.4
[2023-02-08 02:32] LABS: Mucous, Urine 0 SEEN /hpf (<or=2+); Squamous Epithelial Cells - UA 0 SEEN /hpf (0-5)
[2023-02-08 02:35] LABS: Color, Urine Brown (Yellow); Glucose, Dipstick Normal (Normal); Ketone-Dipstick 5 mg/dl (Negative); Leukocyte Esterase-Dipstick 100 /ul (Negative); Nitrite-Dipstick Negative (Negative); Occult Blood-Urine 250 /ul (Negative); Protein-Dipstick 100 mg/dl (Negative); Specific Gravity, Urine 1.025 (1.002-1.030); Urine Clarity Cloudy (Clear); Urine Urobilinogen 1 mg/dl (Normal); Urine pH 6.5 (5.0 - 8.0)
[2023-02-08 02:36] LABS: Urine Bilirubin Dipstick 1 mg/dL (Negative)
[2023-02-08 02:41] VITALS: TEMP 37.2
[2023-02-08 02:45] LABS: Absolute Neutrophil Count 9.2 X10^3/uL (2.0-7.7); Basophil# 0.04 X10^3/uL; Basophil% 0.3 % (0-1); Eosinophil# 0.09 X10^3/uL; Eosinophils% 0.7 % (0-5); Hemoglobin 11.9 g/dL (13.0-16.5); Lymphocyte % 13.7 % (19-41); Mean Corp Hgb Conc 33.1 g/dL (32-36); Mean Corpuscular Hgb 30.3 pg (27.0-32.0); Mean Corpuscular Volume 91.6 fL (80-94); Mean Platelet Vol. 10.2 fl (6.2-12.0); Monocyte# 1.28 X10^3/uL; Monocyte% 10.3 % (0-10); NRBC Flagged by Analyzer 0 % (0-5); Neutrophil # 9.17 X10^3/uL (2.7-7.7); Neutrophil % 74.3 % (47-70); Platelet Count 379 K/mm3 (150-450); RBC Distribution Width CV 13.5 % (11.6-14.6); RBC Distribution Width SD 45.7 fl (35.1-43.9); Red Blood Count 3.93 M/mm3 (4.6-6.2); White Blood Count 12.4 K/mm3 (4.4-11.0)
[2023-02-08 02:48] LABS: White Blood Cells 10-25 SEEN /hpf (0-5)
[2023-02-08 02:49] LABS: Bacteria 2+ /hpf (None Seen); Red Blood Cells-Urine 50-100 SEEN /hpf (0-5)
[2023-02-08 03:00] VITALS: BP 136/79; PULSE 85; RESP 18; TEMP 37; O2SAT 96
[2023-02-08 03:00] LABS: International Normalized Ratio 3.3
[2023-02-08 03:02] LABS: Partial Thromboplast Time 89.5 Seconds (24.1-36.2)
[2023-02-08 03:06] LABS: Anion Gap 8 (5-15); BUN 18 mg/dL (7-18); BUN/Creat Ratio 21.3 RATIO (10-20); Calcium,Total 9.2 mg/dL (8.5-10.1); Chloride 108 mmol/L (98-107); Creatinine, Serum 0.84 mg/dL (0.70-1.30); EST Glomerular Filtration Rate 103 mL/min (>60); Est Glom Filt Rate - Afr Amer 124 mL/min (>60); Estimated Creatinine Clearance 107.55 ml/min; Glucose 102 mg/dL (74-106); Potassium 3.5 mmol/L (3.5-5.1); Sodium Level 138 mmol/L (136-145)
[2023-02-08] MEDS: Ceftriaxone 1 GM/50 ML BAG IV (03:13)
--- NOTE | 2023-02-08 03:44 | EX.ED.DYSGE1 ---
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 Secondary to this he is on Coumadin. [facility] states that they stopped the patient's Coumadin in the last 1 to 2 days because of an elevated INR value. The patient is incontinent and they want to change his briefs/depends today noticed that it looked bloody in nature. Secondary to this they were concerned about internal bleeding and sent the patient in for evaluation. The patient cannot offer any further history based on his MRDD status. Family states that he appears to be internally stimulated recently which is abnormal for him. [facility] Medical History Benign penile tumor Difficulty balancing when standing Dysphagia Epilepsy Gastritis Hearing problem Impetigo Incontinence Limb weakness OCD (obsessive compulsive disorder) Seizures Stroke Thyroid disease Vision problems Vitamin D deficiency Home Medications acetaminophen 500 mg tablet 500 mg PO Q4H PRN PRN Pain 01/11/16 [History Last Taken Unknown] diazepam 5 mg tablet 10 mg PO PRN PRN Seizures 01/11/16 [History Last Taken 01/26/16] lactulose 10 gram/15 mL oral solution 15 ml PO 4X/DAY 01/11/16 [History Last Taken 01/26/16] potassium chloride 10 mEq capsule,extended release 10 meq PO DAILY 01/11/16 [History Last Taken 01/26/16] albuterol sulfate 2.5 mg/3 mL (0.083 %) solution for nebulization 2.5 mg inhalation BID 07/13/16 [History Last Taken Unknown] ergocalciferol (vitamin D2) 1,250 mcg (50,000 unit) capsule 50,000 unit PO Q7D 07/13/16 [History Last Taken Unknown] levetiracetam 500 mg tablet 2,000 mg PO BID 07/13/16 [History Last Taken Unknown] budesonide 0.5 mg/2 mL suspension for nebulization 0.5 mg inhalation DAILY 07/15/16 [History Last Taken Unknown] melatonin 5 mg capsule mg PO 11/07/17 [History Last Taken Unknown] rufinamide 400 mg tablet 800 mg PO BID 11/16/17 [History Last Taken Unknown] topiramate 100 mg tablet 100 mg PO BID 11/16/17 [History Last Taken Unknown] levothyroxine 125 mcg tablet See Rx Instructions PO .COMPLEX #30 tabs 06/07/18 [Rx Last Taken Unknown] aripiprazole 10 mg tablet 10 mg PO 03/10/21 [History Last Taken Unknown] aripiprazole 5 mg tablet 5 mg PO 03/10/21 [History Last Taken Unknown] loratadine 10 mg tablet (Claritin) 10 mg PO DAILY 03/10/21 [History Last Taken Unknown] metoprolol tartrate 25 mg tablet tablet PO 03/10/21 [History Last Taken Unknown] phenytoin 50 mg chewable tablet 50 mg PO 03/10/21 [History Last Taken Unknown] sennosides 8.6 mg-docusate sodium 50 mg tablet (Senokot-S) 1 tab-cap PO QHS 03/10/21 [History Last Taken Unknown] trazodone 100 mg tablet 100 mg PO 03/10/21 [History Last Taken Unknown] cephalexin 250 mg/5 mL oral suspension 500 mg (10 mL) PO TID 7 days #210 mL 02/08/23 [Rx Last Taken Unknown] Allergy/AdvReac Type Severity Reaction Status Date / Time quetiapine [From Seroquel] Allergy Intermediate Rash Verified 02/08/23 02:02 shellfish derived Allergy Unknown Unknown Verified 02/08/23 02:02 Family History (Updated 03/10/21 @ 10:46 by Debora Slater) Other Inés's disease Hx of blood clots Surgical History H/O eye surgery Social History Smoking Status: Never smoker second hand exposure: No alcohol intake: never substance use type: does not use ROS ROS ED ROS Narrative Review of systems cannot be obtained secondary to patient's MRDD status and the fact that he is nonverbal Review of Systems ROS Unobtainable: due to mental condition EXAM Physical Exam Const Vital Signs: 02/08/23 01:56 02/08/23 03:00 02/08/23 02:41 Temperature 98.4 F 98.6 F 98.9 F Temperature Source Temporal Axillary Axillary Pulse Rate 116 H 85 Respiratory Rate 16 18 Blood Pressure 133/88 H 136/79 H Blood Pressure Mean 103 98 Pulse Ox 98 96 Oxygen Delivery Method Room Air Room Air Positive well nourished and well developed General Appearance ED: well developed HEENT Reports dry mucous membranes HEENT Narrative: No airway edema or compromise. No spontaneous bleeding noted within the oral cavity. No secondary changes in the posterior pharynx to suggest infection. Mouth ED: Yes dry mucous membranes Mouth: dry mucous membranes Eyes PERRL and EOMs intact bilaterally General Eye ED: Negative for pale conjunctiva or scleral icterus Neck supple Neck Narrative: No nuchal rigidity or meningeal signs noted Resp normal respiratory effort and clear to auscultation bilaterally Resp Narrative: No nasal flaring retractions tachypnea or accessory muscle use Cardio regular rate and regular rhythm Rate: other Other Details: Radial and carotid pulses are equal and symmetric GI normal to inspection, nondistended, normoactive bowel sounds, non-tender, non-distended and no masses GI Narrative: No organomegaly in the suprapubic region to suggest urinary retention. No pulsatile mass or fluid wave noted Auscultation: normoactive bowel sounds Palpation: soft Narrative: Normal circumcised male. No blood or discharge from the urethral meatus. No testicular swelling or masses noted. No overlying soft tissue changes to suggest Raquel's gangrene. Extremity Extremity Narrative: Patient has chronic changes to his extremity secondary to his MR CP status Neuro Neuro Narrative: Patient is at his baseline mental status without new or focal changes Skin no rashes or lesions noted General Skin Exam: Negative for jaundice MDM MDM MDM Narrative Medical decision making narrative: Patient presented to the ER afebrile with stable blood pressure. [facility] reported spontaneous bleeding from his penis and he is on Coumadin secondary to previous DVT/PE. Therefore differential diagnosis includes supratherapeutic INR versus UTI versus acute blood loss anemia. Basic blood work is obtained and shows a slight white count of 12.4 but stable H&H at 11.9 and 36 going against need for blood transfusion. As differential diagnosis also includes thrombocytopenia coagulation studies were obtained and showed normal platelets and an INR that is only slightly elevated at 3.3. His kidney function is normal as well going against acute kidney injury. Urine sample which was a cath sample does show blood but there is also white blood cells and bacteria consistent with infection. Therefore the patient's hematuria is most likely a combination of being on a blood thinner coupled with a urinary tract infection. At this time however the patient does not have urosepsis or acute kidney injury changes and therefore there is no need for admission. He will be placed on Keflex for the infection while urine is sent for culture. However as his vitals are stable and work-up is not showing changes consistent with acute kidney injury or urosepsis [facility] History & Record Review Discussion w/independent historian: EMS personnel and Family Lab Data Attestation: I reviewed the patient's lab results. Labs: Laboratory Results - last 24 hr 02/08/23 02/08/23 02:27 02:40 WBC 12.4 H RBC 3.93 L Hgb 11.9 L Hct 36.0 L MCV 91.6 MCH 30.3 MCHC 33.1 RDW Std Deviation 45.7 H RDW Coeff of Yobany 13.5 Plt Count 379 MPV 10.2 Immature Gran % (Auto) 0.700 Neut % (Auto) 74.3 H Lymph % (Auto) 13.7 L Hand % (Auto) 10.3 H Eos % (Auto) 0.7 Baso % (Auto) 0.3 Absolute Neuts (auto) 9.2 H Absolute Lymphs (auto) 1.70 Nucleated RBC % 0 PT 34.0 H INR 3.3 APTT 89.5 H Sodium 138 Potassium 3.5 Chloride 108 H Carbon Dioxide 22.0 Anion Gap 8 BUN 18 Creatinine 0.84 Estim Creat Clear Calc 107.55 Est GFR (MDRD) Af Amer 124 Est GFR (MDRD) Non-Af 103 BUN/Creatinine Ratio 21.3 H Glucose 102 Calcium 9.2 Urine Color Brown Urine Clarity Cloudy Urine pH 6.5 Ur Specific [place] 1.025 Urine Protein 100 H Urine Glucose (UA) Normal Urine Ketones 5 H Urine Occult Blood 250 H Urine Nitrite Negative Urine Bilirubin 1 H Urine Urobilinogen 1 H Ur Leukocyte Esterase 100 H Urine RBC 50-100 SEEN Urine WBC 10-25 SEEN Ur Squamous Epith Cells 0 SEEN Urine Bacteria 2+ Urine Mucus 0 SEEN Discharge Plan Triage Chief Complaint: Complaint ED Provider: Nazario Nagy Dx/Rx/DC Orders Clinical Impression: Urinary tract infection, Seizure disorder, Current use of mcc anticoagulation, Hematuria Instructions: What is Hematuria?, Urinary Tract Infections in Men Prescriptions: New cephalexin 250 mg/5 mL suspension for reconstitution 500 mg PO TID 7 Days Qty: 210 0RF No Action melatonin 5 mg capsule PO rufinamide 400 mg tablet 800 mg PO BID aripiprazole 5 mg tablet 5 mg PO loratadine [Claritin] 10 mg tablet 10 mg PO DAILY trazodone 100 mg tablet 100 mg PO sennosides-docusate sodium [Senokot-S] 8.6-50 mg tablet 1 tab-cap PO QHS metoprolol tartrate 25 mg tablet PO phenytoin 50 mg tablet,chewable 50 mg PO aripiprazole 10 mg tablet 10 mg PO potassium chloride 10 MEQ capsule, extended release 10 meq PO DAILY Patient Comments: suppliment acetaminophen 500 MG tablet 500 mg PO Q4H PRN PRN (Reason: Pain) Patient Comments: pain diazepam 5 MG tablet 10 mg PO PRN PRN (Reason: Seizures) Patient Comments: seizures lactulose 10 GM/15 ML solution 15 ml PO 4X/DAY albuterol sulfate 2.5 MG/3 ML solution for nebulization 2.5 mg INHALATION BID ergocalciferol (vitamin D2) 50,000 UNIT capsule 50,000 unit PO Q7D levetiracetam 500 MG tablet 2,000 mg PO BID budesonide 0.5 MG/2 ML suspension for nebulization 0.5 mg INHALATION DAILY topiramate 100 mg tablet 100 mg PO BID levothyroxine 125 mcg tablet See Rx Instructions PO .COMPLEX Qty: 30 11RF Dose Instruction: 6.5 tabs q week PO ; 6.5 tabs q week PO QDAY; 6.5 pills q week Rx Instructions: 6.5 tabs q week PO ; 6.5 tabs q week PO QDAY; 6.5 pills q week Primary Care Provider: Shyanne Chino Referrals: Shyanne Chino DO [Primary Care Provider] - Activity Restrictions/Additional Instructions: The patient's INR/Coumadin level is only slightly up at 3.3. His hemoglobin is essentially normal at 11.9 and he does not require a blood transfusion. He does have a urinary tract infection but no signs of urosepsis or kidney damage. Therefore his hematuria should improve with treatment of the infection and also as his INR normalizes. If there are any further concerns please return to the ER for repeat evaluation Disposition Disposition: Home, Self Care
--- NOTE | 2023-02-08 04:03 | NURSING ---
Report given to RN at [facility] for pt discharge
== END 2023-02-08 04:27 | disposition home or self-care (01) ==
PROVIDERS: Emergency Provider Emergency Medicine; PCP Family Medicine; Visit Provider Emergency Medicine
DX: N39.0 Urinary tract infection, site not specified (principal); G40.909 Epilepsy, unspecified, not intractable, without status epilepticus; R31.9 Hematuria, unspecified; R79.1 Abnormal coagulation profile; F79 Unspecified intellectual disabilities; Z79.01 Long term (current) use of anticoagulants; Z79.899 Other long term (current) drug therapy; Z86.718 Personal history of other venous thrombosis and embolism; Z86.711 Personal history of pulmonary embolism
CPT/HCPCS: 80048; 81001; 85025; 85610; 85730; 87086; 96365; 99285; J7050; P9612; A4216

== ENCOUNTER → 2023-02-13 | Outpatient (REF) | payer MEDICARE, MEDICAID, SELFPAY ==
[2023-02-13 09:36] LABS: Absolute Lymphocyte Count 1.68 X10^3/uL (0.83-4.51); Absolute Neutrophil Count 7.3 X10^3/uL (2.0-7.7); Basophil# 0.07 X10^3/uL; Basophil% 0.7 % (0-1); Eosinophil# 0.09 X10^3/uL; Eosinophils% 0.9 % (0-5); Hematocrit 39.6 % (40-54); Hemoglobin 12.7 g/dL (13.0-16.5); Lymphocyte # 1.68 X10^3/ul (0.83-4.51); Lymphocyte % 16.6 % (19-41); Mean Corp Hgb Conc 32.1 g/dL (32-36); Mean Corpuscular Hgb 30.1 pg (27.0-32.0); Mean Corpuscular Volume 93.8 fL (80-94); Mean Platelet Vol. 10.6 fl (6.2-12.0); Monocyte# 0.96 X10^3/uL; Monocyte% 9.5 % (0-10); NRBC Flagged by Analyzer 0 % (0-5); Neutrophil # 7.25 X10^3/uL (2.7-7.7); Neutrophil % 71.4 % (47-70); Platelet Count 421 K/mm3 (150-450); RBC Distribution Width CV 13.4 % (11.6-14.6); RBC Distribution Width SD 46.5 fl (35.1-43.9); Red Blood Count 4.22 M/mm3 (4.6-6.2); White Blood Count 10.1 K/mm3 (4.4-11.0)
[2023-02-13 09:48] LABS: International Normalized Ratio 3.7; Prothrombin Time (Protime)PT. 36.9 SECONDS (11.7-14.9)
[2023-02-13 09:54] LABS: ALB/GLOB Ratio 0.9 RATIO (0.9-2.4); AST(SGOT) 29 U/L (15-37); Alanine Aminotransfer ALT/SGPT 20 U/L (16-61); Albumin, Serum 3.5 g/dL (3.2-5.0); Alkaline Phosphatase 377 U/L (45-117); Anion Gap 7 (5-15); BUN 13 mg/dL (7-18); BUN/Creat Ratio 15.7 RATIO (10-20); Calcium,Total 9.4 mg/dL (8.5-10.1); Chloride 111 mmol/L (98-107); Creatinine, Serum 0.83 mg/dL (0.70-1.30); EST Glomerular Filtration Rate 105 mL/min (>60); Est Glom Filt Rate - Afr Amer 127 mL/min (>60); Globulin 3.8 g/dL (2.2-4.2); Glucose 111 mg/dL (74-106); Potassium 3.9 mmol/L (3.5-5.1); Protein, Total 7.3 g/dL (6.4-8.2); Sodium Level 144 mmol/L (136-145)
== END ==
LOC: OLS.SW 05:00
PROVIDERS: PCP Family Medicine; Visit Provider Internal Medicine
DX: H05.011 Cellulitis of right orbit (principal); E03.9 Hypothyroidism, unspecified; Z79.01 Long term (current) use of anticoagulants
CPT/HCPCS: 36415; 80053; 85025; 85610

== ENCOUNTER → 2023-02-14 | Outpatient (REF) | payer MEDICARE, MEDICAID, SELFPAY ==
[2023-02-15 08:12] LABS: Immunoglobulin G 538 mg/dL (603-1613)
== END ==
LOC: OLS.SW 06:55
PROVIDERS: PCP Family Medicine; Visit Provider Internal Medicine
DX: H05.011 Cellulitis of right orbit (principal); G80.9 Cerebral palsy, unspecified
CPT/HCPCS: 36415; 82784

== ENCOUNTER → 2023-02-21 | Outpatient (CLI) | payer MEDICARE, MEDICAID, SELFPAY ==
[2023-02-21 11:46] LABS: Absolute Lymphocyte Count 2.06 X10^3/uL (0.83-4.51); Absolute Neutrophil Count 8.1 X10^3/uL (2.0-7.7); Basophil# 0.08 X10^3/uL; Basophil% 0.7 % (0-1); Eosinophil# 0.08 X10^3/uL; Eosinophils% 0.7 % (0-5); Hematocrit 38.2 % (40-54); Hemoglobin 12.5 g/dL (13.0-16.5); Lymphocyte # 2.06 X10^3/ul (0.83-4.51); Lymphocyte % 17.3 % (19-41); Mean Corp Hgb Conc 32.7 g/dL (32-36); Mean Corpuscular Hgb 29.6 pg (27.0-32.0); Mean Corpuscular Volume 90.3 fL (80-94); Mean Platelet Vol. 10.7 fl (6.2-12.0); Monocyte% 12.6 % (0-10); NRBC Flagged by Analyzer 0 % (0-5); Neutrophil # 8.07 X10^3/uL (2.7-7.7); Neutrophil % 67.4 % (47-70); Platelet Count 318 K/mm3 (150-450); RBC Distribution Width CV 13.4 % (11.6-14.6); RBC Distribution Width SD 43.8 fl (35.1-43.9); Red Blood Count 4.23 M/mm3 (4.6-6.2); White Blood Count 11.9 K/mm3 (4.4-11.0)
[2023-02-21 11:54] LABS: International Normalized Ratio 1.3; Prothrombin Time (Protime)PT. 16.5 SECONDS (11.7-14.9)
[2023-02-21 12:30] LABS: ALB/GLOB Ratio 0.9 RATIO (0.9-2.4); AST(SGOT) 24 U/L (15-37); Alanine Aminotransfer ALT/SGPT 17 U/L (16-61); Albumin, Serum 3.1 g/dL (3.2-5.0); Alkaline Phosphatase 305 U/L (45-117); Anion Gap 10 (5-15); BUN 14 mg/dL (7-18); BUN/Creat Ratio 17.3 RATIO (10-20); Calcium,Total 8.5 mg/dL (8.5-10.1); Chloride 110 mmol/L (98-107); Creatinine, Serum 0.81 mg/dL (0.70-1.30); EST Glomerular Filtration Rate 108 mL/min (>60); Est Glom Filt Rate - Afr Amer 130 mL/min (>60); Globulin 3.6 g/dL (2.2-4.2); Glucose 82 mg/dL (74-106); Potassium 3.5 mmol/L (3.5-5.1); Protein, Total 6.7 g/dL (6.4-8.2); Sodium Level 140 mmol/L (136-145)
[2023-02-22 15:08] LABS: Alkaline Phosphatase, Serum 311 IU/L (44-121); Bone Fraction 61 % (12-68); Intestinal Fraction 1 % (0-18); Liver Fraction 38 % (13-88)
== END | disposition home or self-care (01) ==
LOC: LAB 11:34
PROVIDERS: PCP Family Medicine; Visit Provider Family Medicine
DX: L03.90 Cellulitis, unspecified (principal); D64.9 Anemia, unspecified; Z51.81 Encounter for therapeutic drug level monitoring; Z79.01 Long term (current) use of anticoagulants
CPT/HCPCS: 36415; 80053; 84075; 84080; 85025; 85610

== ENCOUNTER 2023-03-02 09:17 | Outpatient (RCR) | payer MEDICARE, MEDICAID, SELFPAY ==
[2023-03-02 09:58] LABS: Prothrombin Time (Protime)PT. 47.1 SECONDS (11.7-14.9)
== END 2023-03-02 23:59 ==
LOC: LABSPEC 09:17
PROVIDERS: PCP Family Medicine; Referring Provider Family Medicine; Visit Provider Family Medicine
DX: Z79.01 Long term (current) use of anticoagulants (principal)
CPT/HCPCS: 85610

== ENCOUNTER → 2023-06-08 | Outpatient (CLI) | payer MEDICARE, MEDICAID, SELFPAY | END | disposition home or self-care (01) | LOC: LABSPEC 12:28 | PROVIDERS: PCP Family Medicine; Referring Provider Family Medicine; Visit Provider Family Medicine | DX: N39.0 Urinary tract infection, site not specified (principal) | CPT/HCPCS: 87077; 87086; 87088; 87186 ==

== ENCOUNTER → 2025-02-28 | Outpatient (CLI) | payer MEDICARE, MEDICAID, SELFPAY ==
--- NOTE | 2025-02-28 11:15 | RAD_ITS ---
PROCEDURE: ABDOMEN SINGLE VIEW 02/28/2025 REASON FOR EXAM: PNEUMONITIS DUE TO INHALATION OF FOOD AND VOMIT TECHNIQUE: Three-view supine abdomen COMPARISON: None. RAD/Abdomen Single View IMPRESSION: Left pelvic metallic coils are seen. An unremarkable bowel-gas pattern is seen. No mass or mass effect is noted. At least mild degenerative changes are seen throughout the visualized spine. Reading Location: [place] [id number]
--- NOTE | 2025-02-28 11:15 | RAD_ITS ---
PROCEDURE: CHEST PA AND LATERAL 02/28/2025 REASON FOR EXAM: PNEUMONITIS DUE TO INHALATION OF FOOD AND VOMIT TECHNIQUE: AP portable upright chest (in wheelchair). COMPARISON: AP chest of 06/08/2018 RAD/Chest PA and Lateral IMPRESSION: Examination somewhat limited by hypoinflation, but no acute pneumonic process i s clearly appreciated. No evidence of pulmonary edema. No pleural effusion or pneumothorax is seen. The cardiomediastinal silhouette is within the normal range for technique. No acute osseous process is seen. Reading Location: [place] [id number]
[2025-02-28 12:53] LABS: Hematocrit 45.9 % (40-54); Hemoglobin 15.5 g/dL (13.0-16.5); Immature Granulocytes Count 0.140 X10^3/uL (0.0-0.0); Mean Corp Hgb Conc 33.8 g/dL (32-36); Mean Corpuscular Volume 93.1 fL (80-94); Mean Platelet Vol. 11.6 fl (6.2-12.0); NRBC Flagged by Analyzer 0 % (0-5); Platelet Count 240 K/mm3 (150-450); RBC Distribution Width CV 14.3 % (11.6-14.6); RBC Distribution Width SD 48.7 fl (35.1-43.9); Red Blood Count 4.93 M/mm3 (4.6-6.2); White Blood Count 12.7 K/mm3 (4.4-11.0)
== END | disposition home or self-care (01) ==
PROVIDERS: PCP Family Medicine; Referring Provider Internal Medicine Pulmonary Disease; Visit Provider Internal Medicine Pulmonary Disease
DX: J69.0 Pneumonitis due to inhalation of food and vomit (principal)
CPT/HCPCS: 36415; 71046; 74018; 85025